=== PATIENT | female | born 1995 | race Caucasian/White ===

== ENCOUNTER 2017-08-11 19:49 | Emergency (ER) | payer SELFPAY ==
--- NOTE | 2017-08-11 21:04 | EDM.PDOC ---
ED HPI GENERAL MEDICAL PROBLEM - General Chief Complaint: ENT Problem Stated Complaint: PT HAS SWOLLEN MOUTH Time Seen by Provider: 08/11/17 20:10 Source of Information: Reports: Patient History Limitations: Reports: No Limitations - History of Present Illness INITIAL COMMENTS - FREE TEXT/NARRATIVE: HISTORY AND PHYSICAL: History of present illness: [22-year-old female complaining of mild sore throat and painful lesions on the sides of her tongue as well as under her tongue. Patient feels like she's been thirsty lately and that her "mouth has been sore. "She feels she's been drinking enough fluids. Denies fevers chills sweats or shaking chills. She feels sicker mouth and lips are drying out] Review of systems: As per history of present illness and below otherwise all systems reviewed and negative. Past medical history: As per history of present illness and as reviewed below otherwise noncontributory. Surgical history: As per history of present illness and as reviewed below otherwise noncontributory. Social history: No reported history of drug or alcohol abuse. Family history: As per history of present illness and as reviewed below otherwise noncontributory. Physical exam: HEENT: Atraumatic, normocephalic, pupils reactive, negative for conjunctival pallor or scleral icterus, mucous membranes moist, throat clear, neck supple, nontender, trachea midline. Lungs: Clear to auscultation, breath sounds equal bilaterally, chest nontender. Heart: S1S2, regular, negative for clicks, rubs, or JVD. Abdomen: Soft, nondistended, nontender. Negative for masses or hepatosplenomegaly. Negative for costovertebral tenderness. Pelvis: Stable nontender. Genitourinary: Deferred. Rectal: Deferred. Extremities: Atraumatic, negative for cords or calf pain. Neurovascular unremarkable. Neuro: Awake, alert, oriented. Cranial nerves unremarkable. Motor and sensory unremarkable throughout. Exam nonfocal. Diagnostics: [Rapid strep] Therapeutics: [] Impression: [Stomatitis Pharyngitis] Plan: [Signs and symptoms consistent with stomatitis with some small areas of ulceration distribution. Patient's oropharynx appears normal however patient with swallowing discomfort so rapid strep pending to rule out early strep infection. Her vital signs are unremarkable and she is well-appearing otherwise. Suspect likely viral stomatitis. Patient aware to use over-the- counter symptomatic treatment as well as Tylenol as needed and follow-up with her primary care doctor. No further workup or treatment will be indicated patient agrees with outpatient follow-up and strict return precautions will be given Definitive disposition and diagnosis as appropriate pending reevaluation and review of above. Oral/Mouth Pain Score (Numeric/FACES): 4 - Related Data Allergies Allergy/AdvReac Type Severity Reaction Status Date / Time Penicillins Allergy Rash Verified 05/27/16 23:34 Home Meds: Home Meds . [No Known Home Meds] 11/04/14 [History] Past Medical History - Past Health History Medical/Surgical History: Denies Medical/Surgical History HEENT History: Reports: None Cardiovascular History: Reports: None Respiratory History: Reports: None Gastrointestinal History: Reports: None Genitourinary History: Reports: None JOB HAND History: Reports: Musculoskeletal History: Reports: None Neurological History: Reports: None Psychiatric History: Reports: None Endocrine/Metabolic History: Reports: None Hematologic History: Reports: Other (See Below) Other Hematologic History: Rhenaud's disease Immunologic History: Reports: Other (See Below) Other Immunologic History: Lupus Oncologic (Cancer) History: Reports: None Dermatologic History: Reports: None - Infectious Disease History Infectious Disease History: Reports: None - Past Surgical History HEENT Surgical History: Reports: Adenoidectomy, Myringotomy w Tube(s), Tonsillectomy Social & Family History - Family History Family Medical History: Unobtainable - Tobacco Use Smoking Status *Q: Never Smoker Second Hand Smoke Exposure: Yes - Alcohol Use Days Per Week of Alcohol Use: 0 - Recreational Drug Use Recreational Drug Use: No ED ROS ENT - Review of Systems Review Of Systems: See Below (History of present illness) ED EXAM, ENT - Physical Exam Exam: See Below (History of present illness) Course - Vital Signs Last Recorded V/S: Last Vital Signs Temp 36.3 C 08/11/17 20:01 Pulse 64 08/11/17 20:01 Resp 18 08/11/17 20:01 BP 104/71 08/11/17 20:01 Pulse Ox 99 08/11/17 20:01 - Orders/Labs/Meds Orders: Active Orders 24 hr Category Date Time Status CULTURE STREP A CONFIRMATION [] Stat Lab 08/11/17 20:53 Results STREP SCRN A RAPID W CULT CONF [] Stat Lab 08/11/17 20:53 Results Labs: Laboratory Tests 08/11/17 Range/Units 20:50 Sodium 140 (136-146) mmol/L Potassium 4.1 (3.5-5.1) mmol/L Chloride 110 (98-110) mmol/L Carbon Dioxide 22 (21-31) mmol/L BUN 20 (6.0-23.0) mg/dL Creatinine 1.0 (0.6-1.5) mg/dL Est Cr Clr Drug Dosing 90.53 mL/min Estimated GFR (MDRD) > 60.0 ml/min Glucose 81 (60-110) mg/dL Calcium 9.3 (8.8-10.8) mg/dL Departure - Departure Time of Disposition: 21:42 Disposition: Home, Self-Care 01 Condition: Good Clinical Impression: Viral stomatitis, Pharyngitis - Discharge Information Referrals: PCP,None [Primary Care Provider] - Forms: ED Department Discharge Additional Instructions: It appears that you have some oral ulcers and ulcers under your tongue. These are a result of a viral infection. Use [id number] topical treatment for oral ulcers for relief of discomfort as needed. You can also take Tylenol as needed for soreness. Your rapid strep test was negative which suggest that your mild sore throat that you've been describing is also a result of your viral infection. Rest and drink plenty of fluids and follow-up with your Dr. in one to 2 days. Return immediately for new severe or worsening symptoms. - My Orders Last 24 Hours: My Active Orders 08/11/17 20:53 CULTURE STREP A CONFIRMATION [RM] Stat STREP SCRN A RAPID W CULT CONF [RM] Stat - Assessment/Plan Last 24 Hours: My Active Orders 08/11/17 20:53 CULTURE STREP A CONFIRMATION [RM] Stat STREP SCRN A RAPID W CULT CONF [RM] Stat
[2017-08-11 21:23] LABS: CHLORIDE,CL 110 mmol/L (98-110); SODIUM,NA 140 mmol/L (136-146)
[2017-08-11 21:57] VITALS: BP 108/61
== END 2017-08-11 21:55 | disposition home or self-care (01) ==
LOC: MW.ED 19:49
DX: J02.9 Acute pharyngitis, unspecified (principal); K12.1 Other forms of stomatitis; Z88.0 Allergy status to penicillin
CPT/HCPCS: 36415; 80048; 87081; 87880; 99282; 99283

== ENCOUNTER 2017-08-19 21:57 | Emergency (ER) | payer SELFPAY ==
--- NOTE | 2017-08-19 22:42 | EDM.PDOC ---
ED HPI GENERAL MEDICAL PROBLEM - General Chief Complaint: Respiratory Problem Stated Complaint: COUGH/CONGESTION/WEAK/LIGHTHEADED Time Seen by Provider: 08/19/17 22:34 - History of Present Illness INITIAL COMMENTS - FREE TEXT/NARRATIVE: HISTORY AND PHYSICAL: History of present illness: Patient's 22-year-old white female presents with concern of generalized myalgia cough intermittent dizziness denies abdominal pain fever chills nausea vomiting or other complaints patient states she has history of lupus and fibromyalgia Review of systems: As per history of present illness and below otherwise all systems reviewed and negative. Past medical history: As per history of present illness and as reviewed below otherwise noncontributory. Surgical history: As per history of present illness and as reviewed below otherwise noncontributory. Social history: No reported history of drug or alcohol abuse. Family history: As per history of present illness and as reviewed below otherwise noncontributory. Physical exam: HEENT: Atraumatic, normocephalic, pupils reactive, negative for conjunctival pallor or scleral icterus, mucous membranes moist, throat clear, neck supple, nontender, trachea midline. Lungs: Clear to auscultation, breath sounds equal bilaterally, chest nontender. Heart: S1S2, regular, negative for clicks, rubs, or JVD. Abdomen: Soft, nondistended, nontender. Negative for masses or hepatosplenomegaly. Negative for costovertebral tenderness. Pelvis: Stable nontender. Genitourinary: Deferred. Rectal: Deferred. Extremities: Atraumatic, negative for cords or calf pain. Neurovascular unremarkable. Neuro: Awake, alert, oriented. Cranial nerves II through XII unremarkable. Cerebellum unremarkable. Motor and sensory unremarkable throughout. Exam nonfocal. Diagnostics: CBC CMP UA hCG chest x-ray Therapeutics: None Impression: #1 viral syndrome Definitive disposition and diagnosis as appropriate pending reevaluation and review of above. Generalized Pain Score (Numeric/FACES): 5 - Related Data Allergies Allergy/AdvReac Type Severity Reaction Status Date / Time Penicillins Allergy Rash Verified 05/27/16 23:34 Home Meds: Home Meds . 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: Musculoskeletal History: Reports: None Neurological History: Reports: None Psychiatric History: Reports: None Endocrine/Metabolic History: Reports: None Hematologic History: Reports: Other (See Below) Other Hematologic History: Rhenaud's disease Immunologic History: Reports: Other (See Below) Other Immunologic History: Lupus Oncologic (Cancer) History: Reports: None Dermatologic History: Reports: None - Infectious Disease History Infectious Disease History: Reports: None - Past Surgical History HEENT Surgical History: Reports: Adenoidectomy, Myringotomy w Tube(s), Tonsillectomy Social & Family History - Family History Family Medical History: Unobtainable - Tobacco Use Smoking Status *Q: Never Smoker Second Hand Smoke Exposure: Yes - Alcohol Use Days Per Week of Alcohol Use: 0 - Recreational Drug Use Recreational Drug Use: No ED ROS GENERAL - Review of Systems Review Of Systems: ROS reveals no pertinent complaints other than HPI. ED EXAM, GENERAL - Physical Exam Exam: See Below (See dictation) Course - Vital Signs Last Recorded V/S: Last Vital Signs Temp 36.9 C 08/19/17 22:00 Pulse 75 08/19/17 22:00 Resp 16 08/19/17 22:00 BP 115/78 08/19/17 22:00 Pulse Ox 98 08/19/17 22:00 - Orders/Labs/Meds Orders: Active Orders 24 hr Category Date Time Status Chest 2V [CR] Stat Exams 08/19/17 22:41 Ordered CBC WITH AUTO DIFF [HEME] Stat Lab 08/19/17 22:40 Ordered COMPREHENSIVE METABOLIC PN,CMP [CHEM] Stat Lab 08/19/17 22:40 Ordered HCG QUALITATIVE,SERUM [CHEM] Stat Lab 08/19/17 22:40 Ordered UA W/MICROSCOPIC [URIN] Stat Lab 08/19/17 22:40 Uncollected Departure - Departure Time of Disposition: 22:42 Disposition: Home, Self-Care 01 Condition: Good Clinical Impression: Viral syndrome - Discharge Information Referrals: Marilee Corral, [employer] [Primary Care Provider] - Additional Instructions: The following information is given to patients seen in the emergency department who are being discharged to home. This information is to outline your options for follow-up care. We provide all patients seen in our emergency department with a follow-up referral. The need for follow-up, as well as the timing and circumstances, are variable depending upon the specifics of your emergency department visit. If you don't have a primary care physician on staff, we will provide you with a referral. We always advise you to contact your personal physician following an emergency department visit to inform them of the circumstance of the visit and for follow-up with them and/or the need for any referrals to a consulting specialist. The emergency department will also refer you to a specialist when appropriate. This referral assures that you have the opportunity for followup care with a specialist. All of these measure are taken in an effort to provide you with optimal care, which includes your followup. Under all circumstances we always encourage you to contact your private physician who remains a resource for coordinating your care. When calling for followup care, please make the office aware that this follow-up is from your recent emergency room visit. If for any reason you are refused follow-up, please contact the [facility] emergency department at and asked to speak to the emergency department charge nurse. Push fluids follow up primary medical doctor 1 today's return as needed as discussed - My Orders Last 24 Hours: My Active Orders 08/19/17 22:40 CBC WITH AUTO DIFF [HEME] Stat COMPREHENSIVE METABOLIC PN,CMP [CHEM] Stat HCG QUALITATIVE,SERUM [CHEM] Stat UA W/MICROSCOPIC [URIN] Stat 08/19/17 22:41 Chest 2V [CR] Stat - Assessment/Plan Last 24 Hours: My Active Orders 08/19/17 22:40 CBC WITH AUTO DIFF [HEME] Stat COMPREHENSIVE METABOLIC PN,CMP [CHEM] Stat HCG QUALITATIVE,SERUM [CHEM] Stat UA W/MICROSCOPIC [URIN] Stat 08/19/17 22:41 Chest 2V [CR] Stat
[2017-08-19 23:24] LABS: CHLORIDE,CL 108 mmol/L (98-110); SODIUM,NA 140 mmol/L (136-146)
[2017-08-20 00:11] VITALS: BP 106/73
--- NOTE | 2017-08-20 10:46 | CR ---
EXAM DATE: 08/19/17 PATIENT'S AGE: 22 Patient: WALTER ARIAS Facility: [place], [place] Site . Site : 1995 Study: XRay Chest [id number] 11:36:29 PM Ordering Physician: Carlos Manuel Toussaint Final Report: INDICATION: Cough, congestion, lightheaded TECHNIQUE: Chest radiograph 2 views COMPARISON: 12/03/15 FINDINGS: Cardiovascular and mediastinum: The cardiac silhouette is normal in appearance and size. Mediastinum is within normal limits. Lungs and pleural spaces: Both lungs are unremarkable in appearance. No sign of pleural effusion. No pneumothorax is seen. Bones and soft tissues: No significant findings. IMPRESSION: 1. No acute cardiopulmonary disease seen. Dictated by: Jackson Medrano MD @ 08/19/2017 23:40:46 (Electronic Signature) Report Signed by Proxy. [facility]ENTERWilliam
== END 2017-08-20 00:10 | disposition home or self-care (01) ==
LOC: MW.ED 21:57
DX: B34.9 Viral infection, unspecified (principal); Z88.0 Allergy status to penicillin; Z98.890 Other specified postprocedural states
CPT/HCPCS: 36415; 71020; 71020-26; 80053; 81001; 84703; 85025; 99282; 99285

== ENCOUNTER 2017-12-09 23:06 | Emergency (ER) | payer SELFPAY ==
--- NOTE | 2017-12-09 23:35 | EDM.PDOC ---
ED HPI GENERAL MEDICAL PROBLEM - General Chief Complaint: General Stated Complaint: UNK Time Seen by Provider: 12/09/17 23:34 Source of Information: Reports: Patient - History of Present Illness INITIAL COMMENTS - FREE TEXT/NARRATIVE: HISTORY AND PHYSICAL: History of present illness: [ Patient presents with several complaints over the last year she is been having some problems with intermittent abdominal pain no worse with fatty food she is actually weaned herself slowly off fatty foods to a fairly bland diet she still notices nausea and bloating even after bland foods and water. After dinner tonight she had some abdominal pain and bloating that has now subsided maximally was 6 out of 10 is 0 out of 10 at current. She also described a numbness sensation don't find any sensory deficit no motor was deficit patient is ambulatory no fever nausea vomiting diarrhea constipation chest pain shortness breath headache dizziness palpitation no bowel or urine symptoms at current ] Review of systems: As per history of present illness and below otherwise all systems reviewed and negative. Past medical history: As per history of present illness and as reviewed below otherwise noncontributory. Surgical history: As per history of present illness and as reviewed below otherwise noncontributory. Social history: No reported history of drug or alcohol abuse. Family history: As per history of present illness and as reviewed below otherwise noncontributory. Physical exam: HEENT: Atraumatic, normocephalic, pupils reactive, negative for conjunctival pallor or scleral icterus, mucous membranes moist, throat clear, neck supple, nontender, trachea midline. Lungs: Clear to auscultation, breath sounds equal bilaterally, chest nontender. Heart: S1S2, regular, negative for clicks, rubs, or JVD. Abdomen: Soft, nondistended, tender in right lower quadrant deep palpation no guarding or rebound. Negative for masses or hepatosplenomegaly. Negative for costovertebral tenderness. Pelvis: Stable nontender. Genitourinary: Deferred. Rectal: Deferred. Extremities: Atraumatic, negative for cords or calf pain. Neurovascular unremarkable. Neuro: Awake, alert, oriented. Cranial nerves II through XII unremarkable. Cerebellum unremarkable. Motor and sensory unremarkable throughout. Exam nonfocal. Diagnostics: []CBC CMP UA hCG cardiac enzymes EKG Chest [address] no [address] CT abdomen pelvis with contrast Therapeutics: [1 L normal saline bolus ] ER referral for general surgeon to evaluate and treat for cholelithiasis and intermittent biliary colic Impression: Cholelithiasis Biliary colic likely Right ovarian cyst No metabolic explanation for the numbness that she experienced however this is resolved at this time patient is otherwise generally healthy Definitive disposition and diagnosis as appropriate pending reevaluation and review of above. - Related Data Allergies Allergy/AdvReac Type Severity Reaction Status Date / Time Penicillins Allergy Rash Verified 12/09/17 23:19 Home Meds: Home Meds . 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: Musculoskeletal History: Reports: None, Other (See Below) Other Musculoskeletal History: fibromyalgia Neurological History: Reports: None Psychiatric History: Reports: None Endocrine/Metabolic History: Reports: None Hematologic History: Reports: Other (See Below) Other Hematologic History: Rhenaud's disease Immunologic History: Reports: Other (See Below) Other Immunologic History: Lupus Oncologic (Cancer) History: Reports: None Dermatologic History: Reports: None - Infectious Disease History Infectious Disease History: Reports: None - Past Surgical History HEENT Surgical History: Reports: Adenoidectomy, Myringotomy w Tube(s), Tonsillectomy Social & Family History - Family History Family Medical History: Unobtainable - Tobacco Use Smoking Status *Q: Never Smoker Second Hand Smoke Exposure: No - Caffeine Use Caffeine Use: Reports: Soda - Alcohol Use Days Per Week of Alcohol Use: 0 - Recreational Drug Use Recreational Drug Use: No ED ROS GENERAL - Review of Systems Review Of Systems: ROS reveals no pertinent complaints other than HPI. ED EXAM, GENERAL - Physical Exam Exam: See Below Course - Vital Signs Last Recorded V/S: Last Vital Signs Temp 98.5 F 12/09/17 23:06 Pulse 98 12/09/17 23:06 Resp 16 12/09/17 23:06 BP 125/80 12/09/17 23:06 Pulse Ox 93 L 12/09/17 23:06 - Orders/Labs/Meds Orders: Active Orders 24 hr Category Date Time Status EKG Documentation Completion [RC] STAT Care 02/05/18 23:32 Active Abdomen Pelvis w Cont [CT] Stat Exams 12/10/17 00:00 Taken Chest 1V Frontal [CR] Stat Exams 12/09/17 23:32 Taken Head wo Cont [CT] Stat Exams 12/09/17 23:32 Taken Labs: Laboratory Tests 12/09/17 12/09/17 12/09/17 Range/Units 23:42 23:42 23:42 WBC (4.0-11.0) K/uL RBC (4.30-5.90) M/uL Hgb (12.0-16.0) g/dL Hct (36.0-46.0) % MCV (80.0-98.0) fL MCH (27.0-32.0) pg MCHC (31.0-37.0) g/dL RDW Std Deviation (28.0-62.0) fl RDW Coeff of Codey (11.0-15.0) % Plt Count (150-400) K/uL MPV (7.40-12.00) fL Neut % (Auto) (48.0-80.0) % Lymph % (Auto) (16.0-40.0) % Upson % (Auto) (0.0-15.0) % Eos % (Auto) (0.0-7.0) % Baso % (Auto) (0.0-1.5) % Neut # (Auto) (1.4-5.7) K/uL Lymph # (Auto) (0.6-2.4) K/uL Upson # (Auto) (0.0-0.8) K/uL Eos # (Auto) (0.0-0.7) K/uL Baso # (Auto) (0.0-0.1) K/uL Nucleated RBC % /100WBC Nucleated RBCs # K/uL INR Sodium (136-146) mmol/L Potassium (3.5-5.1) mmol/L Chloride (98-110) mmol/L Carbon Dioxide (21-31) mmol/L BUN (6.0-23.0) mg/dL Creatinine (0.6-1.5) mg/dL Est Cr Clr Drug Dosing mL/min Estimated GFR (MDRD) ml/min Glucose (60-110) mg/dL Calcium (8.8-10.8) mg/dL Total Bilirubin (0.1-1.5) mg/dL AST (5-40) IU/L ALT (8-54) IU/L Alkaline Phosphatase (40-150) Creatine Kinase (9-236) IU/L CK-MB (CK-2) (0-6.6) ng/ml Troponin I (0.0-0.29) NG/ML Total Protein (6.0-8.0) g/dL Albumin (3.5-5.0) g/dL Globulin (2.0-3.5) g/dL Albumin/Globulin Ratio (1.3-2.8) Urine Color YELLOW Urine Appearance CLEAR Urine pH 7.5 (5.0-8.0) Ur Specific [place] 1.010 (1.001-1.035) Urine Protein NEGATIVE (NEGATIVE) mg/dL Urine Glucose (UA) NEGATIVE (NEGATIVE) mg/dL Urine Ketones NEGATIVE (NEGATIVE) mg/dL Urine Occult Blood NEGATIVE (NEGATIVE) Urine Nitrite NEGATIVE (NEGATIVE) Urine Bilirubin NEGATIVE (NEGATIVE) Urine Urobilinogen 0.2 (<2.0) EU/dL Ur Leukocyte Esterase NEGATIVE (NEGATIVE) Urine RBC 0-2 (0-2/HPF) Urine WBC 0-1 (0-5/HPF) Ur Epithelial Cells FEW (NONE-FEW) Urine Bacteria FEW (NEGATIVE) Urine HCG, Qual NEGATIVE (NEGATIVE) Urine Opiates Screen NEGATIVE (NEGATIVE) Ur Oxycodone Screen NEGATIVE (NEGATIVE) Urine Methadone Screen NEGATIVE (NEGATIVE) Ur Barbiturates Screen NEGATIVE (NEGATIVE) Ur Phencyclidine Scrn NEGATIVE (NEGATIVE) Ur Amphetamine Screen NEGATIVE (NEGATIVE) U Methamphetamines Scrn NEGATIVE (NEGATIVE) U Benzodiazepines Scrn NEGATIVE (NEGATIVE) U Cocaine Metab Screen NEGATIVE (NEGATIVE) U Marijuana (THC) Screen NEGATIVE (NEGATIVE) Ethyl Alcohol mg/dL 12/09/17 12/09/17 12/09/17 Range/Units 23:53 23:53 23:53 WBC 6.81 (4.0-11.0) K/uL RBC 4.41 (4.30-5.90) M/uL Hgb 13.2 (12.0-16.0) g/dL Hct 38.5 (36.0-46.0) % MCV 87.3 (80.0-98.0) fL MCH 29.9 (27.0-32.0) pg MCHC 34.3 (31.0-37.0) g/dL RDW Std Deviation 42.6 (28.0-62.0) fl RDW Coeff of Codey 13 (11.0-15.0) % Plt Count 207 (150-400) K/uL MPV 10.70 (7.40-12.00) fL Neut % (Auto) 61.3 (48.0-80.0) % Lymph % (Auto) 26.1 (16.0-40.0) % Upson % (Auto) 7.6 (0.0-15.0) % Eos % (Auto) 4.6 (0.0-7.0) % Baso % (Auto) 0.4 (0.0-1.5) % Neut # (Auto) 4.2 (1.4-5.7) K/uL Lymph # (Auto) 1.8 (0.6-2.4) K/uL Upson # (Auto) 0.5 (0.0-0.8) K/uL Eos # (Auto) 0.3 (0.0-0.7) K/uL Baso # (Auto) 0.0 (0.0-0.1) K/uL Nucleated RBC % 0.0 /100WBC Nucleated RBCs # 0 K/uL INR 1.02 Sodium 142 (136-146) mmol/L Potassium 3.6 (3.5-5.1) mmol/L Chloride 110 (98-110) mmol/L Carbon Dioxide 23 (21-31) mmol/L BUN 15 (6.0-23.0) mg/dL Creatinine 0.9 (0.6-1.5) mg/dL Est Cr Clr Drug Dosing 97.82 mL/min Estimated GFR (MDRD) > 60.0 ml/min Glucose 95 (60-110) mg/dL Calcium 9.9 (8.8-10.8) mg/dL Total Bilirubin 0.4 (0.1-1.5) mg/dL AST 126 H (5-40) IU/L ALT 162 H (8-54) IU/L Alkaline Phosphatase 105 (40-150) Creatine Kinase 91 (9-236) IU/L CK-MB (CK-2) 1.1 (0-6.6) ng/ml Troponin I < 0.10 (0.0-0.29) NG/ML Total Protein 6.9 (6.0-8.0) g/dL Albumin 4.5 (3.5-5.0) g/dL Globulin 2.4 (2.0-3.5) g/dL Albumin/Globulin Ratio 1.9 (1.3-2.8) Urine Color Urine Appearance Urine pH (5.0-8.0) Ur Specific [place] (1.001-1.035) Urine Protein (NEGATIVE) mg/dL Urine Glucose (UA) (NEGATIVE) mg/dL Urine Ketones (NEGATIVE) mg/dL Urine Occult Blood (NEGATIVE) Urine Nitrite (NEGATIVE) Urine Bilirubin (NEGATIVE) Urine Urobilinogen (<2.0) EU/dL Ur Leukocyte Esterase (NEGATIVE) Urine RBC (0-2/HPF) Urine WBC (0-5/HPF) Ur Epithelial Cells (NONE-FEW) Urine Bacteria (NEGATIVE) Urine HCG, Qual (NEGATIVE) Urine Opiates Screen (NEGATIVE) Ur Oxycodone Screen (NEGATIVE) Urine Methadone Screen (NEGATIVE) Ur Barbiturates Screen (NEGATIVE) Ur Phencyclidine Scrn (NEGATIVE) Ur Amphetamine Screen (NEGATIVE) U Methamphetamines Scrn (NEGATIVE) U Benzodiazepines Scrn (NEGATIVE) U Cocaine Metab Screen (NEGATIVE) U Marijuana (THC) Screen (NEGATIVE) Ethyl Alcohol < 10.0 mg/dL Meds: Medications Discontinued Medications Generic Name Dose Route Start Last Admin Trade Name Freq PRN Reason Stop Dose Admin Lorazepam 0.5 mg 12/09/17 23:38 12/09/17 23:59 Ativan IVPUSH 12/09/17 23:39 0.5 mg ONETIME ONE Administration Departure - Departure Time of Disposition: 02:03 Disposition: Home, Self-Care 01 Condition: Good Clinical Impression: Cholelithiasis, Biliary colic, Ovarian cyst - Discharge Information Referrals: PCP,None [Primary Care Provider] - Forms: ED Department Discharge Additional Instructions: Prescription for Cipro 500 mg by mouth twice a day #20 no refill Toradol 10 mg by mouth 3 times a day when necessary #15 no refill Zofran 8 mg every 8 hours when necessary #30 no refill ER referral for general surgeon to evaluate and treat cholelithiasis and intermittent biliary colic [facility] - General Surgery Professional [address], [address] [place] [address] The following information is given to patients seen in the emergency department who are being discharged to home. This information is to outline your options for follow-up care. We provide all patients seen in our emergency department with a follow-up referral. The need for follow-up, as well as the timing and circumstances, are variable depending upon the specifics of your emergency department visit. If you don't have a primary care physician on staff, we will provide you with a referral. We always advise you to contact your personal physician following an emergency department visit to inform them of the circumstance of the visit and for follow-up with them and/or the need for any referrals to a consulting specialist. The emergency department will also refer you to a specialist when appropriate. This referral assures that you have the opportunity for follow-up care with a specialist. All of these measure are taken in an effort to provide you with optimal care, which includes your follow-up. Under all circumstances we always encourage you to contact your private physician who remains a resource for coordinating your care. When calling for follow-up care, please make the office aware that this follow-up is from your recent emergency room visit. If for any reason you are refused follow-up, please contact the [facility] emergency department at and asked to speak to the emergency department charge nurse. - My Orders Last 24 Hours: My Active Orders 12/09/17 23:32 EKG Documentation Completion [RC] STAT Chest 1V Frontal [CR] Stat Head wo Cont [CT] Stat 12/10/17 00:00 Abdomen Pelvis w Cont [CT] Stat - Assessment/Plan Last 24 Hours: My Active Orders 12/09/17 23:32 EKG Documentation Completion [RC] STAT Chest 1V Frontal [CR] Stat Head wo Cont [CT] Stat 12/10/17 00:00 Abdomen Pelvis w Cont [CT] Stat
[2017-12-09] MEDS ORDERED: LORazepam 2 MG/ML MDV IVPUSH ONE (23:38)
[2017-12-10 00:38] LABS: CHLORIDE,CL 110 mmol/L (98-110); SODIUM,NA 142 mmol/L (136-146)
[2017-12-10 03:21] VITALS: BP 117/76
--- NOTE | 2017-12-10 13:01 | CT ---
EXAM DATE: 12/09/17 PATIENT'S AGE: 22 Patient: WALTER ARIAS Facility: [place], [place] Site . Site : 1995 Study: CT Head [id number] 1:08:19 AM Ordering Physician: Doctor Ravi Final Report: INDICATION: dizziness and fatigue today TECHNIQUE: CT Head without contrast. COMPARISON: None. FINDINGS: There is no sign of intracranial hemorrhage or mass effect. The kearney-white differentiation is preserved. No abnormal intra-axial or extra-axial fluid collection. No acute disease of the visualized paranasal sinuses and mastoid air cells. No fracture evident. No scalp hematoma/laceration. IMPRESSION: No acute intracranial process. Dictated by: Filippo Bales MD @ 12/10/2017 01:29:30 (Electronic Signature) Report Signed by Proxy. [facility]
--- NOTE | 2017-12-10 13:02 | CT ---
EXAM DATE: 12/09/17 PATIENT'S AGE: 22 Patient: WALTER ARIAS Facility: [place], [place] Site . Site : 1995 Study: CT Abdomen/Pelvis With [id number] 1:08:47 AM Ordering Physician: Maikel Luque Final Report: INDICATION: general abd pain TECHNIQUE: CT abdomen and pelvis acquired with IV contrast. COMPARISON: None FINDINGS: Lower chest: Unremarkable. Liver: Unremarkable. Spleen: Unremarkable. Pancreas: Unremarkable. Gallbladder and bile ducts: Cholelithiasis. Mild prominence of the intrahepatic biliary system. . Kidneys: Unremarkable. Adrenal glands: Unremarkable. GI tract: Unremarkable. Appendix is not visualized. Vascular structures: Negative. No sign of aneurysm. Lymph nodes: Unremarkable. Miscellaneous: Unremarkable. No free air. Small amount of free fluid. Pelvic Organs: Nonspecific fluid within the endometrium. Incompletely evaluated 3.1 x 3 cm low-attenuation structure within the right adnexa. Bones: Unremarkable for age. IMPRESSION: 1. Cholelithiasis. Nonspecific mild prominence of the intrahepatic biliary system. 2. Nonspecific fluid within the endometrium. Please correlate with patient`s menstrual cycle. Incompletely evaluated 3.1 cm probable right ovarian cyst. If clinically warranted this could be Further evaluated with a pelvic ultrasound. Dictated by Filippo Bales MD @ 12/10/2017 1:38:40 AM Dictated by: Filippo Bales MD @ 12/10/2017 01:38:53 (Electronic Signature) Report Signed by Proxy. [facility]
--- NOTE | 2017-12-10 13:03 | CR ---
EXAM DATE: 12/09/17 PATIENT'S AGE: 22 Patient: WALTER ARIAS Facility: [place], [place] Site . Site : 1995 Study: XRay Chest [id number] 1:13:49 AM Ordering Physician: Maikel Luque Final Report: INDICATION: dizziness and fatigue today TECHNIQUE: Chest 1 view COMPARISON: August 19, 2017 FINDINGS: Cardiovascular and mediastinum: Heart size and vasculature are normal in caliber and appearance. Mediastinum is within normal limits. Lungs and pleural space: No focal consolidation. No sign of pleural effusion. No pneumothorax. Bones and soft tissues: No significant findings. IMPRESSION: No acute cardiopulmonary disease. Dictated by Filippo Bales MD @ 12/10/2017 1:40:11 AM Dictated by: Filippo Bales MD @ 12/10/2017 01:40:32 (Electronic Signature) Report Signed by Proxy. [facility]
== END 2017-12-10 02:25 | disposition home or self-care (01) ==
LOC: MW.ED 23:06
DX: K80.70 Calculus of gallbladder and bile duct without cholecystitis without obstruction (principal); N83.201 Unspecified ovarian cyst, right side; Z88.0 Allergy status to penicillin
CPT/HCPCS: 36415; 70450; 71045; 74177; 80053; 80305; 81001; 81025; 82550; 82553; 84484; 85025; 85610; 93005; 96374; 99284; G0480; J2060; 99283

== ENCOUNTER 2018-01-06 07:22 | Day surgery (SDC) | payer MEDICAID ==
[~2018-01-06 07:22] MED LIST: Lactated Ringers 1,000 ML IV SCH; cefOXitin 2 GM in Premix Bag 1 BAG IV ONE
[2018-01-06] MEDS ORDERED: Midazolam 1 MG/ML 2 ML SDV ONE (07:23)
[2018-01-06] MEDS ORDERED: fentaNYL 100 MCG/2 ML SDV ONE (07:23)
[2018-01-06] MEDS ORDERED: HYDROmorphone 2 MG/ML SDV ONE (07:23)
[2018-01-06] MEDS ORDERED: Propofol 200 MG/20 ML SDV ONE (07:23)
[2018-01-06] MEDS ORDERED: Bupivacaine 0.5% 10 ML SDV ONE (07:28)
--- NOTE | 2018-01-06 08:32 | PCM.PREANE ---
Preanesthetic Assessment - Anesthesia/Transfusion/Family Hx Anesthesia History: Prior Anesthesia Without Reaction Family History of Anesthesia Reaction: No (mother within 24 hours after CTR last month) Transfusion History: No Prior Transfusion(s) Intubation History: Unknown - Review of Systems General: No Symptoms Pulmonary: No Symptoms Cardiovascular: No Symptoms Gastrointestinal: Abdominal Pain Neurological: No Symptoms Other: Reports: None - Physical Assessment O2 Sat by Pulse Oximetry: 99 Respiratory Rate: 16 Vital Signs: Last Vital Signs Temp 36.6 C 01/06/18 08:01 Pulse 76 01/06/18 08:01 Resp 16 01/06/18 08:01 BP 104/74 01/06/18 08:01 Pulse Ox 99 01/06/18 08:01 Height: 1.73 m Weight: 61.689 kg ASA Class: 2 Mental Status: Alert & Oriented x3 Dentition: Reports: Normal Dentition Thyro-Mental Finger Breadths: 3 Mouth Opening Finger Breadths: 3 ROM/Head Extension: Full Lungs: Clear to Auscultation, Normal Respiratory Effort Cardiovascular: Regular Rate, Regular Rhythm - Lab Values: Laboratory Last Values Urine HCG, Qual NEGATIVE (NEGATIVE) 01/06/18 07:44 - Allergies Allergies/Adverse Reactions: Allergies Allergy/AdvReac Type Severity Reaction Status Date / Time Penicillins Allergy Anaphylactic Verified 01/01/18 11:29 Shock - Blood Blood Available: No - Anesthesia Plan Pre-Op Medication Ordered: None - Acknowledgements Anesthesia Type Planned: General Anesthesia Pt an Appropriate Candidate for the Planned Anesthesia: Yes Alternatives and Risks of Anesthesia Discussed w Pt/Guardian: Yes Pt/Guardian Understands and Agrees with Anesthesia Plan: Yes PreAnesthesia Questionnaire - Past Health History Medical/Surgical History: Denies Medical/Surgical History HEENT History: Reports: None Cardiovascular History: Reports: Other (See Below) Other Cardiovascular History: hx of Raynauds disease in hands and feet Respiratory History: Reports: None Gastrointestinal History: Reports: Cholelithiasis Genitourinary History: Reports: 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: Musculoskeletal History: Reports: Fibromyalgia Other Musculoskeletal History: fibromyalgia Neurological History: Reports: Other (See Below) Other Neuro History: hx of motion sickness Psychiatric History: Reports: None Endocrine/Metabolic History: Reports: None Hematologic History: Reports: Other (See Below) Other Hematologic History: Rhenaud's disease Immunologic History: Reports: Other (See Below) Other Immunologic History: Lupus Oncologic (Cancer) History: Reports: None Dermatologic History: Reports: None - Infectious Disease History Infectious Disease History: Reports: None - Past Surgical History HEENT Surgical History: Reports: Adenoidectomy, Myringotomy w Tube(s) (x4), Tonsillectomy - SUBSTANCE USE Smoking Status *Q: Never Smoker Second Hand Smoke Exposure: No Days Per Week of Alcohol Use: 0 Recreational Drug Use History: No - HOME MEDS Home Medications: Home Meds One Daily For Women 2 tab PO DAILY 01/01/18 [History] - CURRENT (IN HOUSE) MEDS Current Meds: Current Medications Lactated Ringer's (Ringers, Lactated) 1,000 mls @ 125 mls/hr IV ASDIRECTED [facility] Last Admin: 01/06/18 08:20 Dose: 125 mls/hr Discontinued Medications Bupivacaine HCl (Sensorcaine-Mpf 0.5%) Confirm Administered Dose 30 ml .ROUTE .STK-MED ONE Stop: 01/06/18 07:29 Fentanyl (Sublimaze) Confirm Administered Dose 100 mcg .ROUTE .STK-MED ONE Stop: 01/06/18 07:24 Hydromorphone HCl (Dilaudid) Confirm Administered Dose 2 mg .ROUTE .STK-MED ONE Stop: 01/06/18 07:24 Cefoxitin Sodium 2 gm/ Premix 50 mls @ 100 mls/hr IV ONETIME ONE Stop: 01/06/18 06:29 Lidocaine HCl (Xylocaine-Mpf 1%) Confirm Administered Dose 5 ml .ROUTE .STK-MED ONE Stop: 01/06/18 07:26 Midazolam HCl (Versed 1 Mg/Ml) Confirm Administered Dose 2 mg .ROUTE .STK-MED ONE Stop: 01/06/18 07:24 Propofol (Diprivan 20 Ml) Confirm Administered Dose 200 mg .ROUTE .STK-MED ONE Stop: 01/06/18 07:24
[2018-01-06] MEDS ORDERED: Scopolamine 1.5 MG Transdermal Patch ONE (08:35)
[2018-01-06] MEDS ORDERED: Neostigmine Methylsulfate 1 MG/ML 5 ML Syringe ONE (09:31)
[2018-01-06] MEDS ORDERED: Ondansetron 4 MG/2 ML SDV ONE (09:31)
[2018-01-06] MEDS ORDERED: diphenhydrAMINE 50 MG/ML SDV ONE (09:31)
[2018-01-06] MEDS ORDERED: Glycopyrrolate 0.2 MG/ML SDV ONE (09:31)
[2018-01-06] MEDS ORDERED: Rocuronium 10 MG/ML 10 ML Syringe ONE (09:31)
[2018-01-06] MEDS ORDERED: cefOXitin 1 GM Vial ONE (09:31)
[2018-01-06] MEDS ORDERED: ePHEDrine 50 MG/ML SDV ONE (09:32)
[2018-01-06] MEDS ORDERED: Acetaminophen/oxyCODONE 325-5 MG Tab PO PRN (10:40)
[2018-01-06] MEDS ORDERED: Ondansetron 4 MG Tab PO PRN (10:41)
--- NOTE | 2018-01-06 10:47 | PCM.OPNOTE ---
- General Post-Op/Procedure Note Date of Surgery/Procedure: 01/06/18 Operative Procedure(s): Laparoscopic cholecystectomy Pre Op Diagnosis: Symptomatic cholelithiasis Post-Op Diagnosis: Same Anesthesia Technique: General ET Tube (ASA II) Primary Surgeon: Daren Ochoa Community Manager: Mingo Mohamud Fluid Replacement, Intraop: 1,100 Output, Urine Amount: 30 EBL in mLs: 10 Condition: Good Free Text/Narrative:: Dictation [id number] CPT CODE [id number]
[2018-01-06] MEDS: fentaNYL 100 MCG/2 ML SDV IVPUSH PRN ×2 (10:50→10:51)
[2018-01-06] MEDS ORDERED: Morphine 10 MG/ML Syringe IVPUSH PRN (10:56)
[2018-01-06] MEDS ORDERED: Lactated Ringers 1,000 ML IV SCH (11:00)
--- NOTE | 2018-01-06 11:17 | PCM.POSTAN ---
POST ANESTHESIA ASSESSMENT - MENTAL STATUS Mental Status: Alert - RESPIRATORY Respiratory Status: Respiratory Rate WNL, Airway Patent, O2 Saturation Stable - CARDIOVASCULAR CV Status: Pulse Rate WNL, Blood Pressure Stable - GASTROINTESTINAL GI Status: No Symptoms - PAIN Pain Score: 4 - POST OP HYDRATION Hydration Status: Adequate & Stable - OBSERVATIONS Free Text/Narrative:: no anesthesia problems
--- NOTE | 2018-01-06 12:01 | OR ---
SURGEON: Daren Ochoa M.D. DATE OF PROCEDURE: 01/06/2018 OPERATION PERFORMED: Laparoscopic cholecystectomy. CIRCUS AGENT: Dr. Mohamud, PGY-3. ANESTHESIA: General endotracheal ASA CLASSIFICATION: II. PREOPERATIVE DIAGNOSIS: Cholelithiasis. POSTOPERATIVE DIAGNOSIS: Cholelithiasis. ESTIMATED BLOOD LOSS: 10 mL. INTRAOPERATIVE FLUID REPLACEMENT: 1100 mL of crystalloid. INTRAOPERATIVE URINARY OUTPUT: 30 mL. DESCRIPTION OF PROCEDURE: The patient was taken to the operating room and placed on the operating table in the supine position. Time-out was called for appropriate identification of the patient and procedure. Thigh-high TEDs and sequential compression boots were placed. Following satisfactory attainment of general endotracheal anesthesia, a Sharma catheter was placed in the patient's urinary bladder. The abdomen was prepped with DuraPrep solution, sterile drapes were applied. The skin just below the umbilicus was infiltrated with 0.5% Marcaine solution. The skin incision was made and deepened through the subcutaneous tissue obtaining hemostasis with the use of electrocautery. The Veress needle was introduced into the peritoneal cavity. Saline drop test was positive. Carbon dioxide pneumoperitoneum was established with the relief set at 13 cm of water. Once we had a satisfactory pneumoperitoneum, 5 mm camera and port were placed through the infraumbilical incision. The patient was now positioned with the feet down and rolled to the left. Under camera vision, 12 mm subxiphoid, 5 mm midclavicular, and 5 mm anterior axillary ports were placed. Each incision had preemptively been infiltrated with 0.5% Marcaine solution. The gallbladder was then grasped and the dissection began in the cholecystohepatic triangle. The cystic artery was identified first and dissected out of harm's way. This was then hemoclipped and divided with the laparoscopic Metzenbaum scissor. Following that, the cystic duct was able to be identified, mobilized, and critical view obtained. Once we had confirmed the cystic duct and cleared the view, this structure was also hemoclipped proximally and distally before division with the laparoscopic Metzenbaum scissor. Once that was accomplished, the gallbladder was dissected away from its bed using electrocautery. Once the gallbladder was amputated, this was placed in an Endopouch, which remained in situ. The bed of the gallbladder was then inspected and small bleeding sites were electrocoagulated. The gallbladder bed was irrigated with sterile saline solution. All fluid was aspirated. Surgicel was placed into the bed of the gallbladder. The right hemidiaphragm was irrigated with 200 mL of saline containing 20 mL of 0.5% Marcaine solution, that fluid was left in place. The gallbladder containing Endopouch was then removed through the subxiphoid incision removing the port at the same time. Under camera vision, the 5 mm midclavicular and anterior axillary ports were removed, and finally the infraumbilical camera and port were removed. The wounds were inspected for hemostasis, and hemostasis obtained with electrocautery. The wounds were then closed in the following fashion. The infraumbilical and subxiphoid incisions were closed in 2 layers approximating the subcutaneous tissue with 3-0 Vicryl, and the skin with subcuticular 4-0 Monocryl. The anterior axillary incision was closed with the cutaneous 4-0 Monocryl. The midclavicular incision was closed with subcuticular 4-0 Monocryl. All incisions were Steri-Stripped and dressed with sterile Tegaderm pads. Sponge, needle, and instrument counts were all correct. The Sharma catheter was removed prior to emergence from anesthesia. Following emergence from anesthesia and extubation, the patient was taken to recovery room in stable condition. SIVAKUMAR HURTADO /[id number] LEX
--- NOTE | 2018-01-06 13:19 | PCM48HPAN ---
Post Anesthesia Note - EVALUATION WITHIN 48HRS OF ANESTHETIC Vital Signs in Normal Range: Yes Patient Participated in Evaluation: Yes Respiratory Function Stable: Yes Airway Patent: Yes Cardiovascular Function Stable: Yes Hydration Status Stable: Yes Pain Control Satisfactory: Yes Nausea and Vomiting Control Satisfactory: Yes Mental Status Recovered: Yes Resp Rate: 12 - COMMENTS/OBSERVATIONS Free Text/Narrative:: no anesthesia problems
[2018-01-06 14:43] VITALS: BP 128/67
== END 2018-01-06 13:53 | disposition home or self-care (01) ==
LOC: MW.SDS 07:22
PROVIDERS: ATTEND Surgery
DX: K80.10 Calculus of gallbladder with chronic cholecystitis without obstruction (principal); Z88.0 Allergy status to penicillin; Z79.899 Other long term (current) drug therapy; Z90.89 Acquired absence of other organs; Z98.890 Other specified postprocedural states
CPT/HCPCS: 47562; 81025; A9270; J0694; J1170; J1200; J2250; J2405; J3010; J7120; 00790; 88304; J2704

== ENCOUNTER 2018-03-03 19:18 | Emergency (ER) | payer MEDICAID ==
--- NOTE | 2018-03-03 20:23 | EDM.PDOC ---
ED HPI GENERAL MEDICAL PROBLEM - General Chief Complaint: General Stated Complaint: PT VOMITING Time Seen by Provider: 03/03/18 20:18 - History of Present Illness INITIAL COMMENTS - FREE TEXT/NARRATIVE: HISTORY AND PHYSICAL: History of present illness: Patient's 23-year-old female presents concern of sinus congestion and face pain and nonspecific abdominal pain this is been associated with some anorexia she denies fever chills vomiting diarrhea or other complaints. Patient denies vaginal discharge urinary symptoms or other complaints Review of systems: As per history of present illness and below otherwise all systems reviewed and negative. Past medical history: As per history of present illness and as reviewed below otherwise noncontributory. Surgical history: As per history of present illness and as reviewed below otherwise noncontributory. Social history: No reported history of drug or alcohol abuse. Family history: As per history of present illness and as reviewed below otherwise noncontributory. Physical exam: HEENT: Patient has tenderness over her maxillary sinuses right greater than left Atraumatic, normocephalic, pupils reactive, negative for conjunctival pallor or scleral icterus, mucous membranes moist, throat clear, neck supple, nontender, trachea midline. Lungs: Clear to auscultation, breath sounds equal bilaterally, chest nontender. Heart: S1S2, regular, negative for clicks, rubs, or JVD. Abdomen: Soft, nondistended, nontender. Negative for masses or hepatosplenomegaly. Negative for costovertebral tenderness. Pelvis: Stable nontender. Genitourinary: Deferred. Rectal: Deferred. Extremities: Atraumatic, negative for cords or calf pain. Neurovascular unremarkable. Neuro: Awake, alert, oriented. Cranial nerves II through XII unremarkable. Cerebellum unremarkable. Motor and sensory unremarkable throughout. Exam nonfocal. Diagnostics: CBC CMP UA hCG Therapeutics: None Impression: #1 nonspecific abdominal pain #2 sinusitis Definitive disposition and diagnosis as appropriate pending reevaluation and review of above. - Related Data Allergies Allergy/AdvReac Type Severity Reaction Status Date / Time Penicillins Allergy Anaphylactic Verified 01/01/18 11:29 Shock Home Meds: Home Meds One Daily For Women 2 tab PO DAILY 01/01/18 [History] Acetaminophen/oxyCODONE [Percocet 325-5 MG] 1 - 2 tab PO Q4H PRN #20 tablet 03/ 05/18 [Rx] Past Medical History - Past Health History Medical/Surgical History: Denies Medical/Surgical History HEENT History: Reports: None Cardiovascular History: Reports: Other (See Below) Other Cardiovascular History: hx of Raynauds disease in hands and feet Respiratory History: Reports: None Gastrointestinal History: Reports: Cholelithiasis Genitourinary History: Reports: None 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: Musculoskeletal History: Reports: Fibromyalgia Other Musculoskeletal History: fibromyalgia Neurological History: Reports: Other (See Below) Other Neuro History: hx of motion sickness Psychiatric History: Reports: None Endocrine/Metabolic History: Reports: None Hematologic History: Reports: Other (See Below) Other Hematologic History: Rhenaud's disease Immunologic History: Reports: Other (See Below) Other Immunologic History: Lupus Oncologic (Cancer) History: Reports: None Dermatologic History: Reports: None - Infectious Disease History Infectious Disease History: Reports: None - Past Surgical History HEENT Surgical History: Reports: Adenoidectomy, Myringotomy w Tube(s) (x4), Tonsillectomy Social & Family History - Family History Family Medical History: Unobtainable - Tobacco Use Smoking Status *Q: Never Smoker Second Hand Smoke Exposure: No - Caffeine Use Caffeine Use: Reports: Soda - Alcohol Use Days Per Week of Alcohol Use: 0 - Recreational Drug Use Recreational Drug Use: No Drug Use in Last 12 Months: No ED ROS GENERAL - Review of Systems Review Of Systems: ROS reveals no pertinent complaints other than HPI. ED EXAM, GENERAL - Physical Exam Exam: See Below (See dictation) Departure - Departure Time of Disposition: 20:22 Disposition: Home, Self-Care 01 Condition: Good Clinical Impression: Abdominal pain, Sinusitis - Discharge Information Referrals: PCP,None [Primary Care Provider] - Additional Instructions: The following information is given to patients seen in the emergency department who are being discharged to home. This information is to outline your options for follow-up care. We provide all patients seen in our emergency department with a follow-up referral. The need for follow-up, as well as the timing and circumstances, are variable depending upon the specifics of your emergency department visit. If you don't have a primary care physician on staff, we will provide you with a referral. We always advise you to contact your personal physician following an emergency department visit to inform them of the circumstance of the visit and for follow-up with them and/or the need for any referrals to a consulting specialist. The emergency department will also refer you to a specialist when appropriate. This referral assures that you have the opportunity for followup care with a specialist. All of these measure are taken in an effort to provide you with optimal care, which includes your followup. Under all circumstances we always encourage you to contact your private physician who remains a resource for coordinating your care. When calling for followup care, please make the office aware that this follow-up is from your recent emergency room visit. If for any reason you are refused follow-up, please contact the [facility] emergency department at and asked to speak to the emergency department charge nurse. Bactrim as prescribed follow-up primary medical doctor as needed as discussed clear liquids 24 hours advance diet as tolerated and return as needed as discussed
[2018-03-03 21:03] LABS: CHLORIDE,CL 106 mmol/L (98-107); SODIUM,NA 141 mmol/L (136-145)
[2018-03-03 21:59] VITALS: BP 102/75
== END 2018-03-03 21:35 | disposition home or self-care (01) ==
LOC: MW.ED 19:18
DX: J32.9 Chronic sinusitis, unspecified (principal); R10.9 Unspecified abdominal pain; Z88.0 Allergy status to penicillin; Z79.899 Other long term (current) drug therapy
CPT/HCPCS: 36415; 80053; 81001; 84703; 85025; 99282; 99283

== ENCOUNTER 2018-07-22 20:33 | Emergency (ER) | payer MEDICAID ==
--- NOTE | 2018-07-22 20:58 | EDM.PDOC ---
ED HPI GENERAL MEDICAL PROBLEM - General Chief Complaint: Abdominal Pain Stated Complaint: 6wk PRAG AND IS HAVING BAD CRAMPS WITH LITTLE BLEE Time Seen by Provider: 07/22/18 20:48 - History of Present Illness INITIAL COMMENTS - FREE TEXT/NARRATIVE: HISTORY AND PHYSICAL: History of present illness: The patient is a 23-year-old female who is a 2 para 1 and was unsure of her last period, it may have been May 14 putting her at an estimated gestational age of 9-1/2 weeks or June 12 with threaded estimated gestational age of 5 weeks 5 days although the period in June was very short, and is here for left lower abdominal pain that started today. The patient has not started care but is scheduled to see our nurse log chipper operator Perla and her prior was a normal vaginal delivery. She has a significant surgical history of a cholecystectomy and she has not had fevers chills or upper abdominal pain no cough or upper respiratory symptoms. She has had some nausea intermittently but no vomiting and had a normal bowel movement this evening. She has been eating and drinking normally but says she does have to urinate all the time. Is not painful to urinate and she has no flank pain. She says the pain is crampy and located in the left side and she has had not had any trauma. Patient has not had hematuria but does say that she has some spotting when she wipes which is very faint and pink and she has not had to use a pad. The patient has no STD history or ectopic risks Review of systems: As per history of present illness and below otherwise all systems reviewed and negative. Past medical history: As per history of present illness and as reviewed below otherwise noncontributory. Surgical history: As per history of present illness and as reviewed below otherwise noncontributory. Social history: No reported history of drug or alcohol abuse. Family history: As per history of present illness and as reviewed below otherwise noncontributory. Physical exam: General: Well-developed well-nourished female is nontoxic and moves easily in the ED. Vital signs are noted by me HEENT: Atraumatic, normocephalic, , negative for conjunctival pallor or scleral icterus, mucous membranes moist, throat clear, neck supple, nontender, trachea midline. Lungs: Clear to auscultation, breath sounds equal bilaterally, chest nontender. Heart: S1S2, regular rate and rhythm no overt murmurs Abdomen: Soft, nondistended, there is some mild tenderness in the left lower quadrant on deep palpation without rebound or guarding and bowel sounds are hypoactive. Negative for masses or hepatosplenomegaly. Negative for costovertebral tenderness. Pelvis: Stable nontender. Genitourinary: Deferred. Rectal: Deferred. Extremities: Atraumatic, negative for cords or calf pain. Neurovascular unremarkable. Neuro: Awake, alert, oriented. Cranial nerves II through XII unremarkable. Cerebellum unremarkable. Motor and sensory unremarkable throughout. Exam nonfocal. Diagnostics: CBC serum quantitative hCG ABO Rh UA urine culture if indicated pelvic ultrasound Therapeutics: This was discussed with Dr. Beach [id number]; as the patient is only having minimal spotting on the toilet paper and has not used a pad she does not feel that RhoGAM is indicated at the time for her negative status. Advised the patient that if she starts to bleed more that she will need to get the program. The patient has a scheduled appointment next month with our nurse log chipper operator Perla and I advised the patient to call and try to move that appointment up as this needs to be followed more closely. I will give her information [facility] that if she is unable to move her appointment with Perla she has another option. I've advised on strict pelvic rest and reasons to return to the ED Impression: Threatened Definitive disposition and diagnosis as appropriate pending reevaluation and review of above. Lower Left Quadrant pain Pain Score (Numeric/FACES): 6 - Related Data Allergies Allergy/AdvReac Type Severity Reaction Status Date / Time Penicillins Allergy Anaphylactic Verified 07/22/18 20:41 Shock Home Meds: Home Meds Vits #93/Iron Fum/FA [ Formula Tablet] 1 tab PO DAILY 07/22/18 [History] Past Medical History - Past Health History Medical/Surgical History: Denies Medical/Surgical History HEENT History: Reports: None Cardiovascular History: Reports: Other (See Below) Other Cardiovascular History: hx of Raynauds disease in hands and feet Respiratory History: Reports: None Gastrointestinal History: Reports: Cholelithiasis Genitourinary History: Reports: None 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: Musculoskeletal History: Reports: Fibromyalgia Other Musculoskeletal History: fibromyalgia Neurological History: Reports: Other (See Below) Other Neuro History: hx of motion sickness Psychiatric History: Reports: None Endocrine/Metabolic History: Reports: None Hematologic History: Reports: Other (See Below) Other Hematologic History: Rhenaud's disease; lupus Immunologic History: Reports: Other (See Below) Other Immunologic History: Lupus Oncologic (Cancer) History: Reports: None Dermatologic History: Reports: None - Infectious Disease History Infectious Disease History: Reports: None - Past Surgical History HEENT Surgical History: Reports: Adenoidectomy, Myringotomy w Tube(s), Tonsillectomy Cardiovascular Surgical History: Reports: None Social & Family History - Family History Family Medical History: Unobtainable - Tobacco Use Smoking Status *Q: Never Smoker Second Hand Smoke Exposure: No - Caffeine Use Caffeine Use: Reports: Soda Caffeine Use Comment: stopped when she found out - Recreational Drug Use Recreational Drug Use: No ED ROS GENERAL - Review of Systems Review Of Systems: ROS reveals no pertinent complaints other than HPI. ED EXAM, GENERAL - Physical Exam Exam: See Below (see dictation) Course - Vital Signs Last Recorded V/S: Last Vital Signs Temp 36.6 C 07/22/18 20:42 Pulse 68 07/22/18 22:40 Resp 15 07/22/18 22:40 BP 116/68 07/22/18 22:40 Pulse Ox 99 07/22/18 22:40 - Orders/Labs/Meds Orders: Active Orders 24 hr Category Date Time Status OB 1st Tri Sgl 1st Gest [US] Stat Exams 07/22/18 20:54 Taken Labs: Laboratory Tests 07/22/18 07/22/18 07/22/18 Range/Units 21:05 21:11 21:11 WBC 9.10 (4.0-11.0) K/uL RBC 4.36 (4.30-5.90) M/uL Hgb 13.0 (12.0-16.0) g/dL Hct 38.2 (36.0-46.0) % MCV 87.6 (80.0-98.0) fL MCH 29.8 (27.0-32.0) pg MCHC 34.0 (31.0-37.0) g/dL RDW Std Deviation 43.0 (28.0-62.0) fl RDW Coeff of Codey 13 (11.0-15.0) % Plt Count 249 (150-400) K/uL MPV 10.50 (7.40-12.00) fL Neut % (Auto) 74.4 (48.0-80.0) % Lymph % (Auto) 16.8 (16.0-40.0) % [place] % (Auto) 6.6 (0.0-15.0) % Eos % (Auto) 1.8 (0.0-7.0) % Baso % (Auto) 0.4 (0.0-1.5) % Neut # (Auto) 6.8 H (1.4-5.7) K/uL Lymph # (Auto) 1.5 (0.6-2.4) K/uL [place] # (Auto) 0.6 (0.0-0.8) K/uL Eos # (Auto) 0.2 (0.0-0.7) K/uL Baso # (Auto) 0.0 (0.0-0.1) K/uL Nucleated RBC % 0.0 /100WBC Nucleated RBCs # 0 K/uL HCG, Quant 5434.0 mIU/mL Urine Color YELLOW Urine Appearance CLEAR Urine pH 6.5 (5.0-8.0) Ur Specific [place] <= 1.005 (1.001-1.035) Urine Protein NEGATIVE (NEGATIVE) mg/dL Urine Glucose (UA) NEGATIVE (NEGATIVE) mg/dL Urine Ketones NEGATIVE (NEGATIVE) mg/dL Urine Occult Blood NEGATIVE (NEGATIVE) Urine Nitrite NEGATIVE (NEGATIVE) Urine Bilirubin NEGATIVE (NEGATIVE) Urine Urobilinogen 0.2 (<2.0) EU/dL Ur Leukocyte Esterase NEGATIVE (NEGATIVE) Urine RBC 0-1 (0-2/HPF) Urine WBC 0-2 (0-5/HPF) Ur Epithelial Cells OCCASIONAL (NONE-FEW) Urine Bacteria RARE (NEGATIVE) Blood Type 07/22/18 Range/Units 21:11 WBC (4.0-11.0) K/uL RBC (4.30-5.90) M/uL Hgb (12.0-16.0) g/dL Hct (36.0-46.0) % MCV (80.0-98.0) fL MCH (27.0-32.0) pg MCHC (31.0-37.0) g/dL RDW Std Deviation (28.0-62.0) fl RDW Coeff of Codey (11.0-15.0) % Plt Count (150-400) K/uL MPV (7.40-12.00) fL Neut % (Auto) (48.0-80.0) % Lymph % (Auto) (16.0-40.0) % [place] % (Auto) (0.0-15.0) % Eos % (Auto) (0.0-7.0) % Baso % (Auto) (0.0-1.5) % Neut # (Auto) (1.4-5.7) K/uL Lymph # (Auto) (0.6-2.4) K/uL [place] # (Auto) (0.0-0.8) K/uL Eos # (Auto) (0.0-0.7) K/uL Baso # (Auto) (0.0-0.1) K/uL Nucleated RBC % /100WBC Nucleated RBCs # K/uL HCG, Quant mIU/mL Urine Color Urine Appearance Urine pH (5.0-8.0) Ur Specific [place] (1.001-1.035) Urine Protein (NEGATIVE) mg/dL Urine Glucose (UA) (NEGATIVE) mg/dL Urine Ketones (NEGATIVE) mg/dL Urine Occult Blood (NEGATIVE) Urine Nitrite (NEGATIVE) Urine Bilirubin (NEGATIVE) Urine Urobilinogen (<2.0) EU/dL Ur Leukocyte Esterase (NEGATIVE) Urine RBC (0-2/HPF) Urine WBC (0-5/HPF) Ur Epithelial Cells (NONE-FEW) Urine Bacteria (NEGATIVE) Blood Type A NEGATIVE Departure - Departure Time of Disposition: 23:10 Disposition: Home, Self-Care 01 Condition: Good Clinical Impression: Threatened - Discharge Information Referrals: PCP,None [Primary Care Provider] - Forms: ED Department Discharge Additional Instructions: The following information is given to patients seen in the emergency department who are being discharged to home. This information is to outline your options for follow-up care. We provide all patients seen in our emergency department with a follow-up referral. The need for follow-up, as well as the timing and circumstances, are variable depending upon the specifics of your emergency department visit. If you don't have a primary care physician on staff, we will provide you with a referral. We always advise you to contact your personal physician following an emergency department visit to inform them of the circumstance of the visit and for follow-up with them and/or the need for any referrals to a consulting specialist. The emergency department will also refer you to a specialist when appropriate. This referral assures that you have the opportunity for followup care with a specialist. All of these measure are taken in an effort to provide you with optimal care, which includes your followup. Under all circumstances we always encourage you to contact your private physician who remains a resource for coordinating your care. When calling for followup care, please make the office aware that this follow-up is from your recent emergency room visit. If for any reason you are refused follow-up, please contact the [facility] emergency department at and ask to speak to the emergency department charge nurse. [facility] [address] [place] [id number] [facility] [address] [place] [id number] Push fluids and strict pelvic rest until you're followed up in the clinic as we discussed. If you begin to bleed more heavily you on the to get the rogue and an you can do that with the clinic or return here to the ED. Please call and try to move your appointment with Perla the nurse log chipper operator so that you can be seen in the next 5-7 days or contact [facility] for follow-up as we discussed. Return to ER as needed and as discussed - My Orders Last 24 Hours: My Active Orders 07/22/18 20:54 OB 1st Tri Sgl 1st Gest [US] Stat - Assessment/Plan Last 24 Hours: My Active Orders 07/22/18 20:54 OB 1st Tri Sgl 1st Gest [US] Stat
[2018-07-22 23:19] VITALS: BP 108/67
--- NOTE | 2018-07-23 13:58 | US ---
EXAM DATE: 07/22/18 PATIENT'S AGE: 23 Patient: WALTER ARIAS Facility: [place], [place] Site . Site : 1995 Study: US OB Pelvis [id number]/18/2018 10:24:31 PM Ordering Physician: Susi Wu Final Report: HISTORY: Cramping and spotting. COMPARISON: None available of this gestation. TECHNIQUE: Transvaginal ultrasound examination of the early was performed. FINDINGS: A single intrauterine gestational sac is seen with a pole. The mean sac diameter measurement of 0.6 cm gives an estimated gestational age of 5 weeks 1 day with an estimated date of delivery of 03/23/2019. This does not correlate well with the LMP of 05/14/2018 which gives a clinical age of 9 weeks 6 days. A pole cannot yet be identified, although a possible yolk sac is seen. There is no sign of free fluid in the pelvis. The right ovary contains a complex cyst filled with low-level echoes, consistent with a corpus luteum cyst of . This measures up to 3.0 centimeters in diameter. The left ovary is normal in appearance. Normal color Doppler flow is seen in both ovaries. IMPRESSION: SINGLE INTRAUTERINE GESTATION WITH ESTIMATED AGE OF 5 WEEKS 1 DAY. A POLE CANNOT YET BE IDENTIFIED. COMPLEX CYST IN THE RIGHT OVARY, PROBABLY CORPUS LUTEUM CYST OF . Dictated by Lon Pavon MD @ Jul 22 2018 10:33PM (Electronic Signature) Report Signed by Proxy. LEX
== END 2018-07-22 23:20 | disposition home or self-care (01) ==
LOC: MW.ED 20:33
DX: O20.0 Threatened abortion (principal); Z88.0 Allergy status to penicillin; Z79.899 Other long term (current) drug therapy; Z3A.20 20 weeks gestation of pregnancy
CPT/HCPCS: 36415; 76801; 76801-26; 81001; 84702; 85025; 86900; 86901; 99283; 99284-25

== ENCOUNTER 2019-02-27 01:45 | Inpatient (IN) | payer MEDICAID ==
[2019-02-27] MEDS ORDERED: Clindamycin Phosphate in D5W 900 MG in Premix Bag 1 BAG IV SCH ×2 (02:00)
[2019-02-27] MEDS ORDERED: Misoprostol 200 MCG Tab PO PRN (02:08)
[2019-02-27] MEDS ORDERED: Sodium Chloride 0.9% 10 ML SDV IV PRN (02:08)
[2019-02-27] MEDS ORDERED: Sodium Chloride 0.9% 2.5 ML Syringe FLUSH PRN (02:08)
[2019-02-27] MEDS ORDERED: Sodium Chloride 0.9% 10 ML Syringe FLUSH PRN (02:08)
[2019-02-27] MEDS ORDERED: Carboprost Tromethamine 250 MCG/1 ML Amp IM PRN (02:08)
[2019-02-27] MEDS ORDERED: Methylergonovine 0.2 MG/1 ML Amp IM PRN (02:08)
[2019-02-27] MEDS ORDERED: Water For Irrigation,Sterile 1,000 ML Container IRR PRN (02:08)
[2019-02-27] MEDS ORDERED: Tranexamic Acid 1,000 MG in Sodium Chloride 0.9% 100 ML IV PRN (02:08)
[2019-02-27] MEDS ORDERED: Nalbuphine 10 MG/1 ML Vial IVPUSH PRN (02:08)
[2019-02-27] MEDS ORDERED: Lidocaine 1% 50 ML MDV INJECT PRN (02:08)
[2019-02-27] MEDS ORDERED: Oxytocin/0.9 % Sodium Chloride 30 UNIT/500 ML BAG IV SCH (02:15)
[2019-02-27] MEDS: Lactated Ringers 1,000 ML IV SCH ×2 (03:07→04:29)
--- NOTE | 2019-02-27 03:36 | PCM.LDHP ---
L&D History of Present Illness - General Date of Service: 02/27/19 Admit Problem/Dx: Patient Status Order with Admit Dx/Problem 02/27/19 02:08 Patient Status [ADT] Routine Admission Diagnosis/Problem Admission Diagnosis/Problem 02/27/19 03:31 24yo EDC 03/19/2019 37 1/7wks, Cerclage removed last week and comes in active labor, A neg, RI, GBS unknown. SVE 5/C/BBOW Source of Information: Patient History Limitations: Reports: No Limitations - History of Present Illness Timing/Duration: Reports: minutes: Location, : Reports: Abdomen Quality: Reports: Burning, Stabbing Severity: Severe Improves with: Reports: None Worsens with: Reports: None Associated Symptoms: Reports: N - Related Data Allergies/Adverse Reactions: Allergies Allergy/AdvReac Type Severity Reaction Status Date / Time Penicillins Allergy Anaphylactic Verified 02/27/19 02:01 Shock Home Medications: Home Meds Vits #93/Iron Fum/FA [ Formula Tablet] 1 tab PO DAILY 07/22/18 [History] Past Medical History - Past Health History Medical/Surgical History: Denies Medical/Surgical History HEENT History: Reports: None Cardiovascular History: Reports: None Respiratory History: Reports: None Gastrointestinal History: Reports: Cholelithiasis, Other (See Below) Other Gastrointestinal History: heartburn during Genitourinary History: Reports: None 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: , 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 Musculoskeletal History: Reports: Fibromyalgia Other Musculoskeletal History: fibromyalgia Neurological History: Reports: Other (See Below) Other Neuro History: hx of motion sickness Psychiatric History: Reports: None Endocrine/Metabolic History: Reports: None, Obesity/BMI 30+ Hematologic History: Reports: None Immunologic History: Reports: Other (See Below) Other Immunologic History: Lupus Oncologic (Cancer) History: Reports: None Dermatologic History: Reports: Other (See Below) Other Dermatologic History: raynauds to hands and feet - Infectious Disease History Infectious Disease History: Reports: None - Past Surgical History Head Surgeries/Procedures: Reports: None HEENT Surgical History: Reports: Adenoidectomy, Myringotomy w Tube(s), Tonsillectomy Cardiovascular Surgical History: Reports: None GI Surgical History: Reports: Cholecystectomy Social & Family History - Family History Family Medical History: Unobtainable - Caffeine Use Caffeine Use: Reports: Coffee Caffeine Use Comment: stopped when she found out H&P Review of Systems - Review of Systems: Review Of Systems: See Below General: Reports: No Symptoms HEENT: Reports: No Symptoms Pulmonary: Reports: No Symptoms Cardiovascular: Reports: No Symptoms Gastrointestinal: Reports: No Symptoms Genitourinary: Reports: No Symptoms Musculoskeletal: Reports: No Symptoms Skin: Reports: No Symptoms Psychiatric: Reports: No Symptoms Neurological: Reports: No Symptoms Hematologic/Lymphatic: Reports: No Symptoms Immunologic: Reports: No Symptoms L&D Exam - Exam Exam: See Below - Vital Signs Weight: 78.471 kg - OB Specific Contraction Intensity: Strong Movement: Active Heart Tones: Present Heart Tones per Min: 120 Heart Rate (FHR) Variability: Moderate (6-25 bmp) Presentation: Vertex - Hammer Score Hammer Score Cervix Position: Midposition Hammer Score Consistency: Soft Hammer Score Effacement: >80% Hammer Score Dilation: > 5 cm Hammer Score Infant's Station: -2 Hammer Score Total: 10 - Exam General: Alert, Oriented, Cooperative Lungs: Clear to Auscultation, Normal Respiratory Effort. No: Decreased Breath Sounds Cardiovascular: Regular Rate, Regular Rhythm, Normal S1, Normal S2. No: Irregular Rhythm GI/Abdominal Exam: Soft, Non-Tender Rectal Exam: Deferred Genitourinary: Normal external exam, Cervical dilitation Back Exam: Normal Inspection, Full Range of Motion Extremities: Normal Inspection, Normal Range of Motion, Non-Tender, No Pedal Edema Skin: Warm, Dry, Intact Neurological: Cranial Nerves Intact, Strength Equal Bilateral, Normal Speech, Normal Tone Psychiatric: Alert, Normal Affect, Normal Mood - Patient Data Lab Results Last 24 hrs: Laboratory Results - last 24 hr 02/27/19 02/27/19 Range/Units 02:20 02:20 WBC 13.82 H (4.0-11.0) K/uL RBC 4.01 L (4.30-5.90) M/uL Hgb 12.2 (12.0-16.0) g/dL Hct 36.5 (36.0-46.0) % MCV 91.0 (80.0-98.0) fL MCH 30.4 (27.0-32.0) pg MCHC 33.4 (31.0-37.0) g/dL RDW Std Deviation 42.7 (28.0-62.0) fl RDW Coeff of Codey 13 (11.0-15.0) % Plt Count 307 (150-400) K/uL MPV 10.10 (7.40-12.00) fL Nucleated RBC % 0.0 /100WBC Nucleated RBCs # 0 K/uL Blood Type A NEGATIVE Antibody Screen NEGATIVE Result Diagrams: 02/27/19 02:20 - Problem List (1) Supervision of normal IUP (intrauterine ) in multigravida SNOMED Code(s): 096031811, 452280419, [id number] ICD Code: Z34.80 - ENCOUNTER FOR SUPRVSN OF NORMAL , UNSP TRIMESTER Status: Acute Priority: High Current Visit: Yes Qualifiers: Trimester: third trimester Qualified Code(s): Z34.83 - Encounter for supervision of other normal , third trimester Problem List Initiated/Reviewed/Updated: Yes Orders Last 24hrs: Active Orders 24 hr Category Date Time Status Patient Status [ADT] Routine ADT 02/27/19 02:08 Active Heart Tones [RC] CONTINUOUS Care 02/27/19 02:08 Active Non Stress Test [RC] PER UNIT ROUTINE Care 02/27/19 02:08 Active May Shower [RC] ASDIRECTED Care 02/27/19 02:08 Active Notify Provider [RC] PRN Care 02/27/19 02:08 Active Up ad Isabel [RC] ASDIRECTED Care 02/27/19 02:08 Active Vaginal Exam [RC] PRN Care 02/27/19 02:08 Active Vital Signs [RC] PER UNIT ROUTINE Care 02/27/19 02:08 Active Carboprost Tromethamine [Hemabate DS] Med 02/27/19 02:08 Active 250 mcg IM ASDIRECTED PRN Clindamycin Phosphate in D5W [Cleocin in D5W] 900 mg Med 02/27/19 02:00 Active Premix Bag 1 bag IV Q8H Lactated Ringers [Ringers, Lactated] 1,000 ml Med 02/27/19 02:15 Active IV ASDIRECTED Lidocaine 1% [Xylocaine 1%] Med 02/27/19 02:08 Active 50 ml INJECT ONETIME PRN Methylergonovine [Methergine] Med 02/27/19 02:08 Active 0.2 mg IM ASDIRECTED PRN Nalbuphine [Nubain] Med 02/27/19 02:08 Active 10 mg IVPUSH Q1H PRN Oxytocin/0.9 % Sodium Chloride [Oxytocin 30 Unit/500 ML Med 02/27/19 02:15 Active -NS] 30 unit in 500 ml IV TITRATE Sodium Chloride 0.9% [Normal Saline] Med 02/27/19 02:08 Active 10 ml IV ASDIRECTED PRN Sodium Chloride 0.9% [Saline Flush] Med 02/27/19 02:08 Active 10 ml FLUSH ASDIRECTED PRN Sodium Chloride 0.9% [Saline Flush] Med 02/27/19 02:08 Active 2.5 ml FLUSH ASDIRECTED PRN Tranexamic Acid [Cyklokapron] 1,000 mg Med 02/27/19 02:08 Active Sodium Chloride 0.9% [Normal Saline] 100 ml IV ONETIME Water For Irrigation,Sterile [Sterile Water for Med 02/27/19 02:08 Active Irrigation] 1,000 ml IRR ASDIRECTED PRN miSOPROStol [Cytotec] Med 02/27/19 02:08 Active 200 mcg PO ONETIME PRN Scalp Electrode [WOMSER] Per Unit Routine Oth 02/27/19 02:08 Ordered Peripheral IV Insertion Adult [OM.PC] Routine Oth 02/27/19 02:08 Ordered Resuscitation Status Routine Resus Stat 02/27/19 02:08 Ordered Medication Orders Carboprost Tromethamine (Hemabate Ds) 250 mcg IM ASDIRECTED PRN PRN Reason: Post Hemorrhage Clindamycin Phosphate 900 mg/ (Premix) 50 mls @ 100 mls/hr IV Q8H [facility] Last Admin: 02/27/19 03:06 Dose: 100 mls/hr Lactated Ringer's (Ringers, Lactated) 1,000 mls @ 150 mls/hr IV ASDIRECTED [facility] Last Admin: 02/27/19 03:07 Dose: 150 mls/hr Oxytocin/Sodium Chloride (Oxytocin 30 Unit/500 Ml-Ns) 30 unit in 500 mls @ 999 mls/hr IV TITRATE [facility] Tranexamic Acid 1,000 mg/ (Sodium Chloride) 110 mls @ 660 mls/hr IV ONETIME PRN PRN Reason: Bleeding Lidocaine HCl (Xylocaine 1%) 50 ml INJECT ONETIME PRN PRN Reason: Laceration repair Methylergonovine Maleate (Methergine) 0.2 mg IM ASDIRECTED PRN PRN Reason: Post Hemorrhage Misoprostol (Cytotec) 200 mcg PO ONETIME PRN PRN Reason: Post Hemorrhage Nalbuphine HCl (Nubain) 10 mg IVPUSH Q1H PRN PRN Reason: Pain (severe 7-10) Sodium Chloride (Saline Flush) 10 ml FLUSH ASDIRECTED PRN PRN Reason: Keep Vein Open Sodium Chloride (Saline Flush) 2.5 ml FLUSH ASDIRECTED PRN PRN Reason: Keep Vein Open Sodium Chloride (Normal Saline) 10 ml IV ASDIRECTED PRN PRN Reason: IV Use Sterile Water (Sterile Water For Irrigation) 1,000 ml IRR ASDIRECTED PRN PRN Reason: delivery Assessment/Plan Comment:: Labor A: 24yo EDC 03/19/2019 37 1/7wks, Cerclage removed last week and comes in active labor, A neg, RI, GBS unknown. SVE 5/C/BBOW P: Admit, epidural now, Clindamycin for GBS unkwn and PCN allergy, anticipate . Dr Serrano updated
[2019-02-27] MEDS ORDERED: Lidocaine HCl/EPINEPHrine 5 ML IJ ONE (03:46)
--- NOTE | 2019-02-27 04:13 | PCM.PREANE ---
Preanesthetic Assessment - Anesthesia/Transfusion/Family Hx Anesthesia History: Prior Anesthesia Without Reaction Family History of Anesthesia Reaction: No Transfusion History: No Prior Transfusion(s) Intubation History: Unknown - Review of Systems General: No Symptoms Pulmonary: No Symptoms Cardiovascular: No Symptoms Gastrointestinal: No Symptoms Neurological: No Symptoms - Physical Assessment NPO Status Date: 02/27/19 NPO Status Time: 03:00 Height: 5 ft 8 in Weight: 78.471 kg ASA Class: 2E Mental Status: Alert & Oriented x3 Airway Class: Mallampati = 1 Dentition: Reports: Normal Dentition Thyro-Mental Finger Breadths: 3 ROM/Head Extension: Full Lungs: Clear to Auscultation, Normal Respiratory Effort Cardiovascular: Regular Rate, Regular Rhythm - Lab Values: Laboratory Last Values WBC 13.82 K/uL (4.0-11.0) H 02/27/19 02:20 RBC 4.01 M/uL (4.30-5.90) L 02/27/19 02:20 Hgb 12.2 g/dL (12.0-16.0) 02/27/19 02:20 Hct 36.5 % (36.0-46.0) 02/27/19 02:20 MCV 91.0 fL (80.0-98.0) 02/27/19 02:20 MCH 30.4 pg (27.0-32.0) 02/27/19 02:20 MCHC 33.4 g/dL (31.0-37.0) 02/27/19 02:20 RDW Std Deviation 42.7 fl (28.0-62.0) 02/27/19 02:20 RDW Coeff of Codey 13 % (11.0-15.0) 02/27/19 02:20 Plt Count 307 K/uL (150-400) 02/27/19 02:20 MPV 10.10 fL (7.40-12.00) 02/27/19 02:20 Nucleated RBC % 0.0 /100WBC 02/27/19 02:20 Nucleated RBCs # 0 K/uL 02/27/19 02:20 Blood Type A NEGATIVE 02/27/19 02:20 Antibody Screen NEGATIVE 02/27/19 02:20 - Allergies Allergies/Adverse Reactions: Allergies Allergy/AdvReac Type Severity Reaction Status Date / Time Penicillins Allergy Anaphylactic Verified 02/27/19 02:01 Shock - Acknowledgements Anesthesia Type Planned: Epidural Pt an Appropriate Candidate for the Planned Anesthesia: Yes Alternatives and Risks of Anesthesia Discussed w Pt/Guardian: Yes Pt/Guardian Understands and Agrees with Anesthesia Plan: Yes Additional Comments: - 37 weeks and 5 cm. Delivered last baby at 32 weeks. Had cerclage up until few days ago with this baby. 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 Musculoskeletal History: Reports: Fibromyalgia Other Musculoskeletal History: fibromyalgia Neurological History: Reports: Other (See Below) Other Neuro History: hx of motion sickness Psychiatric History: Reports: None Endocrine/Metabolic History: Reports: None, Obesity/BMI 30+ Hematologic History: Reports: None Immunologic History: Reports: Other (See Below) Other Immunologic History: Lupus Oncologic (Cancer) History: Reports: None Dermatologic History: Reports: Other (See Below) Other Dermatologic History: raynauds to hands and feet - Infectious Disease History Infectious Disease History: Reports: None - Past Surgical History Head Surgeries/Procedures: Reports: None HEENT Surgical History: Reports: Adenoidectomy, Myringotomy w Tube(s), Tonsillectomy Cardiovascular Surgical History: Reports: None GI Surgical History: Reports: Cholecystectomy - HOME MEDS Home Medications: Home Meds Vits #93/Iron Fum/FA [ Formula Tablet] 1 tab PO DAILY 07/22/18 [History] - CURRENT (IN HOUSE) MEDS Current Meds: Current Medications Carboprost Tromethamine (Hemabate Ds) 250 mcg IM ASDIRECTED PRN PRN Reason: Post Hemorrhage Clindamycin Phosphate 900 mg/ (Premix) 50 mls @ 100 mls/hr IV Q8H [facility] Last Admin: 02/27/19 03:06 Dose: 100 mls/hr Lactated Ringer's (Ringers, Lactated) 1,000 mls @ 150 mls/hr IV ASDIRECTED [facility] Last Admin: 02/27/19 03:07 Dose: 150 mls/hr Oxytocin/Sodium Chloride (Oxytocin 30 Unit/500 Ml-Ns) 30 unit in 500 mls @ 999 mls/hr IV TITRATE [facility] Tranexamic Acid 1,000 mg/ (Sodium Chloride) 110 mls @ 660 mls/hr IV ONETIME PRN PRN Reason: Bleeding Lidocaine HCl (Xylocaine 1%) 50 ml INJECT ONETIME PRN PRN Reason: Laceration repair Methylergonovine Maleate (Methergine) 0.2 mg IM ASDIRECTED PRN PRN Reason: Post Hemorrhage Misoprostol (Cytotec) 200 mcg PO ONETIME PRN PRN Reason: Post Hemorrhage Nalbuphine HCl (Nubain) 10 mg IVPUSH Q1H PRN PRN Reason: Pain (severe 7-10) Sodium Chloride (Saline Flush) 10 ml FLUSH ASDIRECTED PRN PRN Reason: Keep Vein Open Sodium Chloride (Saline Flush) 2.5 ml FLUSH ASDIRECTED PRN PRN Reason: Keep Vein Open Sodium Chloride (Normal Saline) 10 ml IV ASDIRECTED PRN PRN Reason: IV Use Sterile Water (Sterile Water For Irrigation) 1,000 ml IRR ASDIRECTED PRN PRN Reason: delivery Discontinued Medications Fentanyl/Bupivacaine HCl (Owvkoesw-Deoxc-Yu 2 Mcg/Ml-0.125%) Confirm Administered Dose 100 mls @ as directed .ROUTE .STK-MED ONE Stop: 02/27/19 03:44 Lidocaine/Epinephrine (Lidocaine 1.5%-Epi 1:200,000) Confirm Administered Dose 5 ml IJ .STK-MED ONE Stop: 02/27/19 03:47
[2019-02-27] MEDS ORDERED: oxyCODONE 5 MG Tab PO PRN (10:34)
[2019-02-27] MEDS ORDERED: Witch Hazel Medicated Pads 40/Jar TOP PRN (10:34)
[2019-02-27] MEDS ORDERED: Acetaminophen 500 MG Tab PO PRN ×2 (10:34)
[2019-02-27] MEDS ORDERED: Bisacodyl 10 MG Supp RECTAL PRN (10:34)
[2019-02-27] MEDS ORDERED: Benzocaine/Menthol 20%-0.5% Spray 78 GM Cannister TOP PRN (10:34)
[2019-02-27] MEDS ORDERED: Docusate Sodium 100 MG Cap PO PRN (10:34)
[2019-02-27] MEDS ORDERED: Ibuprofen 400 MG Tab PO PRN (10:34)
[2019-02-27] MEDS ORDERED: Lanolin 100% Cream 7 GM Tube TOP PRN (10:34)
[2019-02-27] MEDS: Ibuprofen 800 MG Tab PO PRN ×2 (13:06→19:35)
--- NOTE | 2019-02-27 14:12 | PCM.POSTAN ---
POST ANESTHESIA ASSESSMENT - MENTAL STATUS Mental Status: Alert, Oriented - RESPIRATORY Respiratory Status: Respiratory Rate WNL, Airway Patent, O2 Saturation Stable - CARDIOVASCULAR CV Status: Pulse Rate WNL, Blood Pressure Stable - GASTROINTESTINAL GI Status: No Symptoms - POST OP HYDRATION Hydration Status: Adequate & Stable (delivered and doing well. legs still slightly numb) - OBSERVATIONS Free Text/Narrative:: Delivered and doing well. Legs are still slightly numb.
--- NOTE | 2019-02-27 18:13 | OR ---
SURGEON: Sonny Serrano MD DATE OF PROCEDURE: DELIVERY NOTE: Ms. Wyman is a 24-year-old patient. She is para 0-1-0-1. She had previous premature delivery. She is followed in our clinic primarily by me. Ms. Wyman in this , she had cerclage at 16 weeks performed by me and it was removed at 36 weeks. She is admitted in active labor. Her GBS status was negative. Other than the cerclage, the patient's care was essentially uncomplicated. At the time of admission, she was 5-6 cm with bulging bag of water and then she had a spontaneous rupture of water of clear fluid, then she had epidural anesthesia for labor analgesia. The patient continued to progress spontaneously, and she was able to accomplish normal spontaneous vaginal delivery of a male fetus. scores reported to be 9 and 9. The placenta delivered spontaneous, complete, and intact. ESTIMATED BLOOD LOSS: 250-300 mL. heart rate was category 1 through the entire process of labor. There was no complication in the labor process and delivery. DEMETRIA / GENESIS /[id number]
[2019-02-28] MEDS: Ibuprofen 800 MG Tab PO PRN (06:14)
[2019-02-28 08:49] VITALS: BP 160/70
--- NOTE | 2019-02-28 11:20 | PCM.PNPP ---
- General Info Date of Service: 02/28/19 Functional Status: Reports: Pain Controlled - Review of Systems General: Reports: No Symptoms HEENT: Reports: No Symptoms Pulmonary: Reports: No Symptoms Cardiovascular: Reports: No Symptoms Gastrointestinal: Reports: No Symptoms Genitourinary: Reports: No Symptoms Musculoskeletal: Reports: No Symptoms Skin: Reports: No Symptoms Neurological: Reports: No Symptoms Psychiatric: Reports: No Symptoms - General Info Date of Service: 02/28/19 - Patient Data Vital Signs - Most Recent: Last Vital Signs Temp 36.4 C 02/28/19 08:47 Pulse 68 02/28/19 08:47 Resp 16 02/28/19 08:47 BP 160/70 H 02/28/19 08:47 Pulse Ox 98 02/28/19 08:47 Weight - Most Recent: 78.471 kg Lab Results - Last 24 Hours: Laboratory Results - last 24 hr 02/28/19 Range/Units 06:03 Hgb 11.6 L (12.0-16.0) g/dL Hct 35.9 L (36.0-46.0) % Med Orders - Current: Current Medications Acetaminophen (Tylenol Extra Strength) 500 mg PO Q4H PRN PRN Reason: Pain Acetaminophen (Tylenol Extra Strength) 1,000 mg PO Q4H PRN PRN Reason: Pain Last Admin: 02/27/19 22:53 Dose: 1,000 mg Benzocaine/Menthol (Dermoplast Pain Relief 20%-0.5% Madill) 78 gm TOP ASDIRECTED PRN PRN Reason: Perineal Comfort Measure Last Admin: 02/27/19 12:05 Dose: 1 applic Bisacodyl (Dulcolax) 10 mg RECTAL ONETIME PRN PRN Reason: Constipation Carboprost Tromethamine (Hemabate Ds) 250 mcg IM ASDIRECTED PRN PRN Reason: Post Hemorrhage Docusate Sodium (Colace) 100 mg PO BID PRN PRN Reason: Constipation Last Admin: 02/27/19 20:43 Dose: 100 mg Emollient Ointment (Lansinoh Hpa) 0 gm TOP ASDIRECTED PRN PRN Reason: Sore Nipples Last Admin: 02/27/19 12:05 Dose: 1 applic Clindamycin Phosphate 900 mg/ (Premix) 50 mls @ 100 mls/hr IV Q8H [facility] Last Admin: 02/27/19 03:06 Dose: 100 mls/hr Lactated Ringer's (Ringers, Lactated) 1,000 mls @ 150 mls/hr IV ASDIRECTED [facility] Last Admin: 02/27/19 04:29 Dose: 150 mls/hr Oxytocin/Sodium Chloride (Oxytocin 30 Unit/500 Ml-Ns) 30 unit in 500 mls @ 999 mls/hr IV TITRATE [facility] Last Admin: 02/27/19 09:45 Dose: 999 mls/hr Tranexamic Acid 1,000 mg/ (Sodium Chloride) 110 mls @ 660 mls/hr IV ONETIME PRN PRN Reason: Bleeding Ibuprofen (Motrin) 400 mg PO Q4H PRN PRN Reason: Pain Ibuprofen (Motrin) 800 mg PO Q6H PRN PRN Reason: Pain Last Admin: 02/28/19 06:14 Dose: 800 mg Lidocaine HCl (Xylocaine 1%) 50 ml INJECT ONETIME PRN PRN Reason: Laceration repair Methylergonovine Maleate (Methergine) 0.2 mg IM ASDIRECTED PRN PRN Reason: Post Hemorrhage Misoprostol (Cytotec) 200 mcg PO ONETIME PRN PRN Reason: Post Hemorrhage Nalbuphine HCl (Nubain) 10 mg IVPUSH Q1H PRN PRN Reason: Pain (severe 7-10) Oxycodone HCl (Oxycodone) 5 mg PO Q2H PRN PRN Reason: Pain Sodium Chloride (Saline Flush) 10 ml FLUSH ASDIRECTED PRN PRN Reason: Keep Vein Open Sodium Chloride (Saline Flush) 2.5 ml FLUSH ASDIRECTED PRN PRN Reason: Keep Vein Open Sodium Chloride (Normal Saline) 10 ml IV ASDIRECTED PRN PRN Reason: IV Use Sterile Water (Sterile Water For Irrigation) 1,000 ml IRR ASDIRECTED PRN PRN Reason: delivery Witch Thea (Tucks) 1 pad TOP ASDIRECTED PRN PRN Reason: comfort care Last Admin: 02/27/19 20:44 Dose: 1 pad Discontinued Medications Fentanyl/Bupivacaine HCl (Liszusls-Ezrji-Dp 2 Mcg/Ml-0.125%) Confirm Administered Dose 100 mls @ as directed .ROUTE .STK-MED ONE Stop: 02/27/19 03:44 Last Admin: 02/27/19 05:18 Dose: Not Given Lidocaine/Epinephrine (Lidocaine 1.5%-Epi 1:200,000) Confirm Administered Dose 5 ml IJ .STK-MED ONE Stop: 02/27/19 03:47 Last Admin: 02/27/19 05:18 Dose: Not Given - Interaction Disposition, : [place] in Room with Family Infant Interaction: Holding Infant Feeding: Attempted ; Nursed Fair/Poor Support Person: Significant Other - Recovery Exam Fundal Tone: Firm Fundal Level: At Umbilicus Fundal Placement: Midline Lochia Amount: Scant Lochia Color: Rubra/Red Bladder Status: Voiding - Exam General: Alert, Oriented HEENT: Pupils Equal Neck: Supple Lungs: Clear to Auscultation, Normal Respiratory Effort Cardiovascular: Regular Rate, Regular Rhythm GI/Abdominal Exam: Normal Bowel Sounds, Soft, Non-Tender, No Organomegaly, No Distention, No Abnormal Bruit, No Mass, Pelvis Stable Extremities: Normal Inspection, Normal Range of Motion, Non-Tender, No Pedal Edema, Normal Capillary Refill Skin: Warm, Dry, Intact Wound/Incisions: Healing Well Neurological: No New Focal Deficit Psy/Mental Status: Alert, Normal Affect, Normal Mood - Problem List Review Problem List Initiated/Reviewed/Updated: Yes - My Orders Last 24 Hours: My Active Orders 02/27/19 10:34 Patient Status [ADT] Routine May Shower [RC] ASDIRECTED Up ad Isabel [RC] ASDIRECTED Vital Signs [RC] PER UNIT ROUTINE Acetaminophen [Tylenol Extra Strength] 1,000 mg PO Q4H PRN Acetaminophen [Tylenol Extra Strength] 500 mg PO Q4H PRN Benzocaine/Menthol [Dermoplast Pain Relief 20%-0.5% Madill] 78 gm TOP ASDIRECTED PRN Bisacodyl [Dulcolax] 10 mg RECTAL ONETIME PRN Docusate Sodium [Colace] 100 mg PO BID PRN Ibuprofen [Motrin] 400 mg PO Q4H PRN Ibuprofen [Motrin] 800 mg PO Q6H PRN Lanolin [Lansinoh HPA] See Dose Instructions TOP ASDIRECTED PRN Witch Thea [Tucks] 1 pad TOP ASDIRECTED PRN oxyCODONE 5 mg PO Q2H PRN Assess Lochia [WOMSER] Per Unit Routine Assess Uterine Involution [WOMSER] Per Unit Routine Peripheral IV Discontinue [OM.PC] Routine 02/27/19 Lunch Regular Diet [DIET] - Plan Plan:: Labor A: 24yo EDC 03/19/2019 37 1/7wks, Cerclage removed last week and comes in active labor, A neg, RI, GBS unknown. SVE 5/C/BBOW P: Admit, epidural now, Clindamycin for GBS unkwn and PCN allergy, anticipate . Dr Serrano updated
== END 2019-02-28 14:05 | disposition home or self-care (01) | DRG 807 ==
LOC: MW.OBCHECK 01:45 → MW.OB 01:46 → MW.OBCHECK 02:08 → OBSVTOIN 09:39 → MW.OB 13:00
PROVIDERS: ADMIT Obstetrics & Gynecology; ATTEND Obstetrics & Gynecology
PROC: 10E0XZZ Delivery of Products of Conception, External Approach (ICD-10-PCS; principal; 2019-02-27)
PROC: 3E0R3BZ Introduction of Anesthetic Agent into Spinal Canal, Percutaneous Approach (ICD-10-PCS; 2019-02-27)
PROC: 00HU33Z Insertion of Infusion Device into Spinal Canal, Percutaneous Approach (ICD-10-PCS; 2019-02-27)
DX: O80 Encounter for full-term uncomplicated delivery (principal); Z37.0 Single live birth; Z3A.37 37 weeks gestation of pregnancy
CPT/HCPCS: 36415; 51702; 59025; 59409; 85014; 85018; 85027; 86850; 86900; 86901; A9270-GY; J2590; J3490; J7120

== ENCOUNTER 2019-04-15 23:58 | Emergency (ER) | payer MEDICAID ==
[2019-04-16] MEDS ORDERED: Sodium Chloride 0.9% 1,000 ML IV ONE (00:19)
[2019-04-16] MEDS ORDERED: methylPREDNISolone Sodium Succinate 125 MG/2 ML SDV IVPUSH ONE (00:19)
[2019-04-16] MEDS ORDERED: Ketorolac 30 MG/ML SDV IVPUSH ONE (00:19)
[2019-04-16] MEDS ORDERED: Ondansetron 4 MG/2 ML SDV IVPUSH ONE (00:19)
[2019-04-16] MEDS ORDERED: diphenhydrAMINE 50 MG/ML SDV IVPUSH ONE (00:19)
[2019-04-16] MEDS ORDERED: Sodium Chloride 0.9% 2.5 ML Syringe FLUSH PRN (00:19)
[2019-04-16] MEDS ORDERED: Sodium Chloride 0.9% 10 ML Syringe FLUSH PRN (00:19)
--- NOTE | 2019-04-16 00:25 | EDM.PDOC ---
ED HPI GENERAL MEDICAL PROBLEM - General Chief Complaint: Headache Stated Complaint: MIGRAINE Time Seen by Provider: 04/16/19 00:05 - History of Present Illness INITIAL COMMENTS - FREE TEXT/NARRATIVE: HISTORY AND PHYSICAL: History of present illness: The patient is a 24-year-old female with no headache history who gets headaches occasionally and recently had a baby February 27 and is currently not breast- feeding and says that she woke with a headache this morning which was at the top of her head and radiated to her frontal scalp and forehead as well as to the back of her head. She said that she took a dose of ibuprofen that she was given when she delivered her baby and she is not sure of that dose and it made the headache go away. Should a completely normal day today with no fevers chills nausea vomiting abdominal pain headaches neck pain or trauma. The patient said that at about 10 PM she started getting a headache again in the same location in the same character and she was nauseated and vomited once. She said she again took a dose of ibuprofen and it didn't help so she came here. She did not try any Tylenol or any other [id number] medications. The patient denies any recent illnesses and says she does not have seasonal allergies or hayfever and has a slight runny nose but is not sneezing or coughing. She again has no abdominal complaints other than the nausea and one episode of vomiting she has no visual changes. She says the light hurts her eyes. She registered as a migrane because she believes that she has a migraine although she has never been diagnosed with that as her mother and sister have diagnoses of migraines and she thinks that because of the character this headache with the nausea that she also has migraines. She has never seen a physician specifically for headaches and does not get them that often. Patient denies Review of systems: As per history of present illness and below otherwise all systems reviewed and negative. Past medical history: As per history of present illness and as reviewed below otherwise noncontributory. Surgical history: As per history of present illness and as reviewed below otherwise noncontributory. Social history: No reported history of drug or alcohol abuse. Family history: As per history of present illness and as reviewed below otherwise noncontributory. Physical exam: General: Well-developed well-nourished female who is nontoxic and vital signs are noted by me. She moves easily in the ED without distress HEENT: Atraumatic, normocephalic, there is tenderness with palpation of the scalp throughout the midline from the frontal scalp to the top of the head and just to superior of the occipital area without any defects or soft tissue swelling, there is no occipital groove tenderness specifically, pupils reactive , negative for conjunctival pallor or scleral icterus, mucous membranes moist, throat clear, neck supple, nontender, trachea midline. There is no sinus tenderness no cervical adenopathy or nuchal rigidity no midline C-spine tenderness or muscle spasm. When I palpate the scalp the patient grimaces and says that this causes her to have pain. Lungs: Clear to auscultation, breath sounds equal bilaterally, chest nontender. Heart: S1S2, regular, rate and rhythm no overt murmurs Abdomen: Soft, nondistended, nontender. Negative for masses or hepatosplenomegaly. Negative for costovertebral tenderness. Pelvis: Stable nontender. Genitourinary: Deferred. Rectal: Deferred. Extremities: Atraumatic, negative for cords or calf pain. Neurovascular unremarkable. Neuro: Awake, alert, oriented. Cranial nerves II through XII unremarkable. Cerebellum unremarkable. Motor and sensory unremarkable throughout. Exam nonfocal. Diagnostics: None--discussed with the patient CT scan of the head and she would like to decline and just received pain medication Therapeutics: IV fluids Toradol Zofran Benadryl Solu-Medrol Ori is completely gone and patient will like to go home. Advised her to start a headache journal as this will help delineate the nature of these headaches and best treatment options for her provider going forward. I advised hydration and as much rest as possible Impression: Headache Definitive disposition and diagnosis as appropriate pending reevaluation and review of above. headache Pain Score (Numeric/FACES): 8 - Related Data Allergies Allergy/AdvReac Type Severity Reaction Status Date / Time Penicillins Allergy Anaphylactic Verified 04/16/19 00:12 Shock Home Meds: Home Meds Vits #93/Iron Fum/FA [ Formula Tablet] 1 tab PO DAILY 07/22/18 [History] Past Medical History - Past Health History Medical/Surgical History: Denies Medical/Surgical History HEENT History: Reports: None Cardiovascular History: Reports: None Respiratory History: Reports: None Gastrointestinal History: Reports: Cholelithiasis, Other (See Below) Other Gastrointestinal History: heartburn during Genitourinary History: Reports: None 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: , 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 Musculoskeletal History: Reports: Fibromyalgia Other Musculoskeletal History: fibromyalgia Neurological History: Reports: Other (See Below) Other Neuro History: hx of motion sickness Psychiatric History: Reports: None Endocrine/Metabolic History: Reports: None, Obesity/BMI 30+ Hematologic History: Reports: None Immunologic History: Reports: Other (See Below) Other Immunologic History: Lupus Oncologic (Cancer) History: Reports: None Dermatologic History: Reports: Other (See Below) Other Dermatologic History: raynauds to hands and feet - Infectious Disease History Infectious Disease History: Reports: None - Past Surgical History Head Surgeries/Procedures: Reports: None HEENT Surgical History: Reports: Adenoidectomy, Myringotomy w Tube(s), Tonsillectomy Cardiovascular Surgical History: Reports: None GI Surgical History: Reports: Cholecystectomy Social & Family History - Family History Family Medical History: Unobtainable - Caffeine Use Caffeine Use: Reports: Coffee Caffeine Use Comment: stopped when she found out ED ROS GENERAL - Review of Systems Review Of Systems: ROS reveals no pertinent complaints other than HPI. ED EXAM, GENERAL - Physical Exam Exam: See Below (See dictation) Course - Vital Signs Last Recorded V/S: Last Vital Signs Temp 36.4 C 04/16/19 00:05 Pulse 63 04/16/19 00:05 Resp 16 04/16/19 00:05 BP 107/68 04/16/19 00:05 Pulse Ox 99 04/16/19 00:05 - Orders/Labs/Meds Orders: Active Orders 24 hr Category Date Time Status Sodium Chloride 0.9% [Saline Flush] Med 04/16/19 00:19 Active 10 ml FLUSH ASDIRECTED PRN Sodium Chloride 0.9% [Saline Flush] Med 04/16/19 00:19 Active 2.5 ml FLUSH ASDIRECTED PRN Saline Lock Insert [OM.PC] Stat Oth 04/16/19 00:19 Ordered Medication Orders Sodium Chloride (Saline Flush) 10 ml FLUSH ASDIRECTED PRN PRN Reason: Keep Vein Open Sodium Chloride (Saline Flush) 2.5 ml FLUSH ASDIRECTED PRN PRN Reason: Keep Vein Open Meds: Medications Generic Name Dose Route Start Last Admin Trade Name Antoinette PRN Reason Stop Dose Admin Sodium Chloride 10 ml 04/16/19 00:19 Saline Flush FLUSH ASDIRECTED PRN Keep Vein Open Sodium Chloride 2.5 ml 04/16/19 00:19 Saline Flush FLUSH ASDIRECTED PRN Keep Vein Open Discontinued Medications Generic Name Dose Route Start Last Admin Trade Name Antoinette PRN Reason Stop Dose Admin Diphenhydramine HCl 50 mg 04/16/19 00:19 04/16/19 00:31 Benadryl IVPUSH 04/16/19 00:20 50 mg ONETIME ONE Administration Sodium Chloride 1,000 mls @ 999 mls/hr 04/16/19 00:19 04/16/19 00:28 Normal Saline IV 04/16/19 01:19 999 mls/hr STAT ONE Administration Ketorolac Tromethamine 30 mg 04/16/19 00:19 04/16/19 00:30 Toradol IVPUSH 04/16/19 00:20 30 mg ONETIME ONE Administration Methylprednisolone Sodium Succinate 125 mg 04/16/19 00:19 04/16/19 00:33 Solu-Medrol IVPUSH 04/16/19 00:20 125 mg ONETIME ONE Administration Ondansetron HCl 4 mg 04/16/19 00:19 04/16/19 00:28 Zofran IVPUSH 04/16/19 00:20 4 mg ONETIME ONE Administration Departure - Departure Time of Disposition: 01:44 Disposition: Home, Self-Care 01 Condition: Good Clinical Impression: Headache Qualifiers: Headache type: unspecified Headache chronicity pattern: unspecified pattern Intractability: not intractable Qualified Code(s): R51 - Headache - Discharge Information Referrals: PCP,None [Primary Care Provider] - Forms: ED Department Discharge Additional Instructions: The following information is given to patients seen in the emergency department who are being discharged to home. This information is to outline your options for follow-up care. We provide all patients seen in our emergency department with a follow-up referral. The need for follow-up, as well as the timing and circumstances, are variable depending upon the specifics of your emergency department visit. If you don't have a primary care physician on staff, we will provide you with a referral. We always advise you to contact your personal physician following an emergency department visit to inform them of the circumstance of the visit and for follow-up with them and/or the need for any referrals to a consulting specialist. The emergency department will also refer you to a specialist when appropriate. This referral assures that you have the opportunity for followup care with a specialist. All of these measure are taken in an effort to provide you with optimal care, which includes your followup. Under all circumstances we always encourage you to contact your private physician who remains a resource for coordinating your care. When calling for followup care, please make the office aware that this follow-up is from your recent emergency room visit. If for any reason you are refused follow-up, please contact the [facility] emergency department at and ask to speak to the emergency department charge nurse. [facility]- [facility] Medicine [facility] Family [address] [address] Push hydration and try to get as much rest as you can. Please take care to do good body positioning when you're resting sleeping and napping and feeding the baby to protect her neck and the musculature of your scalp. Use the ibuprofen that you have every 6 hours as needed for headache pain and he can also add Tylenol [id number] and use ice or heating pad to the areas of your neck and scalp for pain management. Please call and schedule a follow-up appointment with your provider in the clinic or ours for further evaluation of this headache if it recurs and return to ER as needed as discussed - My Orders Last 24 Hours: My Active Orders 04/16/19 00:19 Sodium Chloride 0.9% [Saline Flush] 10 ml FLUSH ASDIRECTED PRN Sodium Chloride 0.9% [Saline Flush] 2.5 ml FLUSH ASDIRECTED PRN Saline Lock Insert [OM.PC] Stat - Assessment/Plan Last 24 Hours: My Active Orders 04/16/19 00:19 Sodium Chloride 0.9% [Saline Flush] 10 ml FLUSH ASDIRECTED PRN Sodium Chloride 0.9% [Saline Flush] 2.5 ml FLUSH ASDIRECTED PRN Saline Lock Insert [OM.PC] Stat
[2019-04-16 01:55] VITALS: BP 101/49
== END 2019-04-16 01:55 | disposition home or self-care (01) ==
LOC: MW.ED 23:58
DX: O99.89 Other specified diseases and conditions complicating pregnancy, childbirth and the puerperium (principal); R51 Headache; Z88.0 Allergy status to penicillin; Z79.899 Other long term (current) drug therapy
CPT/HCPCS: 96361; 96374; 96375; 99283; J1200; J1885; J2405; J2930; J7040

== ENCOUNTER 2019-07-22 20:03 | Emergency (ER) | payer MEDICAID ==
--- NOTE | 2019-07-22 21:35 | EDM.PDOC ---
ED HPI GENERAL MEDICAL PROBLEM - General Chief Complaint: Abdominal Pain Stated Complaint: STOMACH PAIN Time Seen by Provider: 07/22/19 20:56 Source of Information: Reports: Patient History Limitations: Reports: No Limitations - History of Present Illness INITIAL COMMENTS - FREE TEXT/NARRATIVE: HISTORY AND PHYSICAL: History of present illness: Patient is a 24-year-old female presents to the ED today with concern of lower abdominal cramping and bleeding from her vagina that she feels is abnormal. Patient states she is approximately 4 months and has had 2 menstrual cycles since delivery. Patient states her last menstrual cycle was approximately 2 weeks ago. Patient states starting today she had a small amount of orange/red blood when she went to the bathroom and this happened on 2 occasions. Patient states along with this she's had some lower abdominal cramping and feels that this is unusual. Patient states she is in a monogamous relationship and has been for 5 years and is not concerned about sexual transmitted infection. Patient has a history of lupus but denies any other health history. Patient denies fever, chills, chest pain, shortness of breath, or cough. Denies headache, neck stiff ness, change in vision, syncope, or near syncope. Denies nausea, vomiting, abdominal pain, diarrhea, constipation, or dysuria. Has not noted any blood in urine or stool. Patient has been eating and drinking appropriately. Review of systems: As per history of present illness and below otherwise all systems reviewed and negative. Past medical history: As per history of present illness and as reviewed below otherwise noncontributory. Surgical history: As per history of present illness and as reviewed below otherwise noncontributory. Social history: See social history for further information Family history: As per history of present illness and as reviewed below otherwise noncontributory. Physical exam: General: Patient is alert, oriented, and in no acute distress. Patient sitting comfortably on exam table. HEENT: Atraumatic, normocephalic, pupils equal and reactive bilaterally, negative for conjunctival pallor or scleral icterus, mucous membranes moist, TMs normal bilaterally, throat clear, neck supple, nontender, trachea midline. No drooling or trismus noted. No meningeal signs. No hot potato voice noted. Lungs: Clear to auscultation, breath sounds equal bilaterally, chest nontender. Heart: S1S2, regular rate and rhythm without overt murmur Abdomen: Soft, nondistended, nontender. Negative for masses or hepatosplenomegaly. Negative for costovertebral tenderness. Pelvis: Stable nontender. Genitourinary: External genitalia grossly unremarkable. There is a small amount of white discharge in the vaginal vault. Patient does have severe pain with cervical motion tenderness and positive chandelier sign. Uterus is approximately 6-7 weeks in size and nontender. Rectal: Deferred. Skin: Intact, warm, dry. No lesions or rashes noted. Extremities: Atraumatic, negative for cords or calf pain. Neurovascular unremarkable. Neuro: Awake, alert, oriented. Cranial nerves II through XII unremarkable. Cerebellum unremarkable. Motor and sensory unremarkable throughout. Exam nonfocal. Notes: Discussed the importance for follow-up with an THRESHING OPERATOR women's health provider. Voices understanding and is agreeable to plan of care. Denies any further questions or concerns at this time. Diagnostics: CBC, CMP, UA, lipase, urine hCG, transvaginal ultrasound non-OB, gonorrhea and chlamydia, affirm, vaginal culture Therapeutics: Rocephin (patient has taken safely in the past), Prescription: Doxycycline, metronidazole Impression: Pelvic inflammatory disease Plan: 1. Take medication as prescribed. You can alternate ibuprofen and Tylenol as directed for pain and discomfort. 2. Follow-up with your primary care provider and your THRESHING OPERATOR women's health provider as discussed. Return to the ED as needed and as discussed. Definitive disposition and diagnosis as appropriate pending reevaluation and review of above. Abdomen Pain Score (Numeric/FACES): 3 - Related Data Allergies Allergy/AdvReac Type Severity Reaction Status Date / Time Penicillins Allergy Anaphylactic Verified 04/16/19 00:12 Shock Home Meds: Home Meds Vits #93/Iron Fum/FA [ Formula Tablet] 1 tab PO DAILY 07/22/18 [History] Past Medical History - Past Health History Medical/Surgical History: Denies Medical/Surgical History HEENT History: Reports: None Cardiovascular History: Reports: None Respiratory History: Reports: None Gastrointestinal History: Reports: Cholelithiasis, Other (See Below) Other Gastrointestinal History: heartburn during Genitourinary History: Reports: None 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: , 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 Musculoskeletal History: Reports: Fibromyalgia Other Musculoskeletal History: fibromyalgia Neurological History: Reports: Other (See Below) Other Neuro History: hx of motion sickness Psychiatric History: Reports: None Endocrine/Metabolic History: Reports: None, Obesity/BMI 30+ Hematologic History: Reports: None Immunologic History: Reports: Other (See Below) Other Immunologic History: Lupus Oncologic (Cancer) History: Reports: None Dermatologic History: Reports: Other (See Below) Other Dermatologic History: raynauds to hands and feet - Infectious Disease History Infectious Disease History: Reports: None - Past Surgical History Head Surgeries/Procedures: Reports: None HEENT Surgical History: Reports: Adenoidectomy, Myringotomy w Tube(s), Tonsillectomy Cardiovascular Surgical History: Reports: None GI Surgical History: Reports: Cholecystectomy Social & Family History - Family History Family Medical History: Unobtainable - Caffeine Use Caffeine Use: Reports: Coffee Caffeine Use Comment: stopped when she found out ED ROS GENERAL - Review of Systems Review Of Systems: ROS reveals no pertinent complaints other than HPI. ED EXAM, GENERAL - Physical Exam Exam: See Below (See dictation) Course - Vital Signs Last Recorded V/S: Last Vital Signs Temp 35.9 C 07/22/19 21:54 Pulse 61 07/22/19 21:54 Resp 16 07/22/19 21:54 BP 108/70 07/22/19 21:54 Pulse Ox 100 07/22/19 21:54 - Orders/Labs/Meds Orders: Active Orders 24 hr Category Date Time Status CHLAMYDIA AND GONORRHEA BY TMA Stat Lab 07/22/19 22:34 Received CULTURE GENITAL [RM] Stat Lab 07/22/19 22:48 Received Labs: Laboratory Tests 07/22/19 07/22/19 07/22/19 Range/Units 20:45 20:45 22:07 WBC 4.96 (4.0-11.0) K/uL RBC 4.52 (4.30-5.90) M/uL Hgb 13.2 (12.0-16.0) g/dL Hct 40.2 (36.0-46.0) % MCV 88.9 (80.0-98.0) fL MCH 29.2 (27.0-32.0) pg MCHC 32.8 (31.0-37.0) g/dL RDW Std Deviation 43.9 (28.0-62.0) fl RDW Coeff of Codey 13 (11.0-15.0) % Plt Count 248 (150-400) K/uL MPV 10.60 (7.40-12.00) fL Neut % (Auto) 58.3 (48.0-80.0) % Lymph % (Auto) 27.2 (16.0-40.0) % Glynn % (Auto) 10.5 (0.0-15.0) % Eos % (Auto) 3.2 (0.0-7.0) % Baso % (Auto) 0.8 (0.0-1.5) % Neut # (Auto) 2.9 (1.4-5.7) K/uL Lymph # (Auto) 1.4 (0.6-2.4) K/uL Glynn # (Auto) 0.5 (0.0-0.8) K/uL Eos # (Auto) 0.2 (0.0-0.7) K/uL Baso # (Auto) 0.0 (0.0-0.1) K/uL Nucleated RBC % 0.0 /100WBC Nucleated RBCs # 0 K/uL Sodium (136-145) mmol/L Potassium (3.5-5.1) mmol/L Chloride (98-107) mmol/L Carbon Dioxide (21.0-32.0) mmol/L BUN (7.0-18.0) mg/dL Creatinine (0.6-1.0) mg/dL Est Cr Clr Drug Dosing mL/min Estimated GFR (MDRD) ml/min Glucose (74-106) mg/dL Calcium (8.5-10.1) mg/dL Total Bilirubin (0.2-1.0) mg/dL AST (15-37) IU/L ALT (14-63) IU/L Alkaline Phosphatase (46-116) U/L Total Protein (6.4-8.2) g/dL Albumin (3.4-5.0) g/dL Globulin (2.6-4.0) g/dL Albumin/Globulin Ratio (0.9-1.6) Lipase (73-393) U/L Urine Color YELLOW Urine Appearance CLEAR Urine pH 6.0 (5.0-8.0) Ur Specific [place] <= 1.005 (1.001-1.035) Urine Protein NEGATIVE (NEGATIVE) mg/dL Urine Glucose (UA) NEGATIVE (NEGATIVE) mg/dL Urine Ketones NEGATIVE (NEGATIVE) mg/dL Urine Occult Blood NEGATIVE (NEGATIVE) Urine Nitrite NEGATIVE (NEGATIVE) Urine Bilirubin NEGATIVE (NEGATIVE) Urine Urobilinogen 0.2 (<2.0) EU/dL Ur Leukocyte Esterase NEGATIVE (NEGATIVE) Urine HCG, Qual NEGATIVE (NEGATIVE) April species DNA (NEGATIVE) Gardnerella DNA Probe (NEGATIVE) Trichomonas DNA Probe (NEGATIVE) 07/22/19 07/22/19 Range/Units 22:07 22:34 WBC (4.0-11.0) K/uL RBC (4.30-5.90) M/uL Hgb (12.0-16.0) g/dL Hct (36.0-46.0) % MCV (80.0-98.0) fL MCH (27.0-32.0) pg MCHC (31.0-37.0) g/dL RDW Std Deviation (28.0-62.0) fl RDW Coeff of Codey (11.0-15.0) % Plt Count (150-400) K/uL MPV (7.40-12.00) fL Neut % (Auto) (48.0-80.0) % Lymph % (Auto) (16.0-40.0) % Glynn % (Auto) (0.0-15.0) % Eos % (Auto) (0.0-7.0) % Baso % (Auto) (0.0-1.5) % Neut # (Auto) (1.4-5.7) K/uL Lymph # (Auto) (0.6-2.4) K/uL Glynn # (Auto) (0.0-0.8) K/uL Eos # (Auto) (0.0-0.7) K/uL Baso # (Auto) (0.0-0.1) K/uL Nucleated RBC % /100WBC Nucleated RBCs # K/uL Sodium 141 (136-145) mmol/L Potassium 4.3 (3.5-5.1) mmol/L Chloride 105 (98-107) mmol/L Carbon Dioxide 27.6 (21.0-32.0) mmol/L BUN 16 (7.0-18.0) mg/dL Creatinine 1.2 H (0.6-1.0) mg/dL Est Cr Clr Drug Dosing 74.18 mL/min Estimated GFR (MDRD) 56.2 ml/min Glucose 96 (74-106) mg/dL Calcium 9.1 (8.5-10.1) mg/dL Total Bilirubin 0.3 (0.2-1.0) mg/dL AST 16 (15-37) IU/L ALT 15 (14-63) IU/L Alkaline Phosphatase 46 (46-116) U/L Total Protein 7.2 (6.4-8.2) g/dL Albumin 4.0 (3.4-5.0) g/dL Globulin 3.2 (2.6-4.0) g/dL Albumin/Globulin Ratio 1.3 (0.9-1.6) Lipase 123 (73-393) U/L Urine Color Urine Appearance Urine pH (5.0-8.0) Ur Specific [place] (1.001-1.035) Urine Protein (NEGATIVE) mg/dL Urine Glucose (UA) (NEGATIVE) mg/dL Urine Ketones (NEGATIVE) mg/dL Urine Occult Blood (NEGATIVE) Urine Nitrite (NEGATIVE) Urine Bilirubin (NEGATIVE) Urine Urobilinogen (<2.0) EU/dL Ur Leukocyte Esterase (NEGATIVE) Urine HCG, Qual (NEGATIVE) April species DNA NEGATIVE (NEGATIVE) Gardnerella DNA Probe NEGATIVE (NEGATIVE) Trichomonas DNA Probe NEGATIVE (NEGATIVE) Meds: Medications Discontinued Medications Generic Name Dose Route Start Last Admin Trade Name Freq PRN Reason Stop Dose Admin Ceftriaxone Sodium 250 mg/ 1 mls @ 1 mls/sec 07/22/19 22:41 07/22/19 23:11 Lidocaine HCl IM 07/22/19 22:42 1 mls/sec ONETIME ONE Administration Departure - Departure Time of Disposition: 00:00 Disposition: Home, Self-Care 01 Clinical Impression: Pelvic inflammatory disease (PID) - Discharge Information Instructions: Pelvic Inflammatory Disease, [id number] Referrals: PCP,None [Primary Care Provider] - Forms: ED Department Discharge Additional Instructions: The following information is given to patients seen in the emergency department who are being discharged to home. This information is to outline your options for follow-up care. We provide all patients seen in our emergency department with a follow-up referral. The need for follow-up, as well as the timing and circumstances, are variable depending upon the specifics of your emergency department visit. If you don't have a primary care physician on staff, we will provide you with a referral. We always advise you to contact your personal physician following an emergency department visit to inform them of the circumstance of the visit and for follow-up with them and/or the need for any referrals to a consulting specialist. The emergency department will also refer you to a specialist when appropriate. This referral assures that you have the opportunity for follow-up care with a specialist. All of these measure are taken in an effort to provide you with optimal care, which includes your follow-up. Under all circumstances we always encourage you to contact your private physician who remains a resource for coordinating your care. When calling for follow-up care, please make the office aware that this follow-up is from your recent emergency room visit. If for any reason you are refused follow-up, please contact the [facility] Emergency Department at and asked to speak to the emergency department charge nurse. [facility] [address] [place] [address] [address] [facility] [address] [place] [address] 1. Take medication as prescribed. You can alternate ibuprofen and Tylenol as directed for pain and discomfort. 2. Follow-up with your primary care provider and your THRESHING OPERATOR women's health provider as discussed. Return to the ED as needed and as discussed. - My Orders Last 24 Hours: My Active Orders 07/22/19 22:34 CHLAMYDIA AND GONORRHEA BY TMA Stat 07/22/19 22:48 CULTURE GENITAL [RM] Stat - Assessment/Plan Last 24 Hours: My Active Orders 07/22/19 22:34 CHLAMYDIA AND GONORRHEA BY TMA Stat 07/22/19 22:48 CULTURE GENITAL [RM] Stat
--- NOTE | 2019-07-22 22:29 | US ---
INDICATION: PELVIC PAIN AND ABNORMAL BLEEDING Dictated by: Jai Nayak MD @ 07/22/2019 22:26:48 (Electronically Signed)
[2019-07-22 22:34] LABS: CARBON DIOXIDE,CO2 27.6 mmol/L (21.0-32.0); POTASSIUM,K 4.3 mmol/L (3.5-5.1)
[2019-07-22] MEDS ORDERED: cefTRIAXone 250 MG in Lidocaine 1% 1 ML IM ONE (22:41)
[2019-07-23 03:50] VITALS: BP 100/68; PULSE 69
== END 2019-07-22 23:51 | disposition home or self-care (01) ==
LOC: MW.ED 20:03
DX: N73.9 Female pelvic inflammatory disease, unspecified (principal); E66.9 Obesity, unspecified; Z88.0 Allergy status to penicillin; Z98.890 Other specified postprocedural states; Z90.49 Acquired absence of other specified parts of digestive tract; Z68.24 Body mass index [BMI] 24.0-24.9, adult
CPT/HCPCS: 36415; 76830; 80053; 81003; 81025; 83690; 85025; 87070; 87480; 87491; 87510; 87591; 87660; 96372; 99284; J0696; J2001; 99283

== ENCOUNTER 2019-10-25 21:12 | Emergency (ER) | payer MEDICAID ==
--- NOTE | 2019-10-25 22:19 | EDM.PDOC ---
ED HPI GENERAL MEDICAL PROBLEM - General Chief Complaint: Abdominal Pain Stated Complaint: ABDOMINAL PAIN Time Seen by Provider: 10/25/19 22:18 Source of Information: Reports: Patient History Limitations: Reports: No Limitations - History of Present Illness INITIAL COMMENTS - FREE TEXT/NARRATIVE: HISTORY AND PHYSICAL: History of present illness: Patient is a 24-year-old female presents to ED with complaint of abdominal pain. Patient states that pain started after she was doing yoga this afternoon. She states she has been nauseous as well. She denies fevers, chills, vomiting, diarrhea, cough, shortness of breath. Review of systems: As per history of present illness and below otherwise all systems reviewed and negative. Past medical history: As per history of present illness and as reviewed below otherwise noncontributory. Surgical history: As per history of present illness and as reviewed below otherwise noncontributory. Social history: No reported history of drug or alcohol abuse. Family history: As per history of present illness and as reviewed below otherwise noncontributory. Physical exam: General: Patient sitting comfortably in no acute distress and nontoxic appearing HEENT: Atraumatic, normocephalic, pupils reactive, negative for conjunctival pallor or scleral icterus, mucous membranes moist, throat clear, neck supple, nontender, trachea midline. No meningeal signs. Lungs: Clear to auscultation, breath sounds equal bilaterally, chest nontender. Heart: S1S2, regular, negative for clicks, rubs, or overt murmur. Abdomen: Soft, nondistended, nontender. Negative for masses or hepatosplenomegaly. Negative for costovertebral tenderness. No rigidity, rebound , guarding. Pelvis: Stable nontender. Genitourinary: Deferred. Rectal: Deferred. Extremities: Atraumatic, negative for cords or calf pain. Neurovascular unremarkable. Neuro: Awake, alert, oriented. Cranial nerves II through XII unremarkable. Cerebellum unremarkable. Motor and sensory unremarkable throughout. Exam nonfocal. Notes: Diagnostics: UA, urine hcg Therapeutics: [] Prescriptions: Macrobid Impression: UTI Definitive disposition and diagnosis as appropriate pending reevaluation and review of above. SONYA abdomen Pain Score (Numeric/FACES): 6 - Related Data Allergies Allergy/AdvReac Type Severity Reaction Status Date / Time Penicillins Allergy Anaphylactic Verified 10/25/19 21:31 Shock Home Meds: Home Meds Vits #93/Iron Fum/FA [ Formula Tablet] 1 tab PO DAILY 07/22/18 [History] Ascorbic Acid/Collagen Hydr [Collagen Plus Vit C] 1 tab PO DAILY 10/25/19 [ History] Nitrofurantoin Monohyd/M-Cryst [Macrobid 100 mg Capsule] 100 mg PO BID 7 Days # 14 capsule 10/25/19 [Rx] Past Medical History - Past Health History Medical/Surgical History: Denies Medical/Surgical History HEENT History: Reports: None Cardiovascular History: Reports: None Respiratory History: Reports: None Gastrointestinal History: Reports: Cholelithiasis, Other (See Below) Other Gastrointestinal History: heartburn during Genitourinary History: Reports: None 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: , 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 Musculoskeletal History: Reports: Fibromyalgia Other Musculoskeletal History: fibromyalgia Neurological History: Reports: Other (See Below) Other Neuro History: hx of motion sickness Psychiatric History: Reports: None Endocrine/Metabolic History: Reports: None, Obesity/BMI 30+ Hematologic History: Reports: None Immunologic History: Reports: Other (See Below) Other Immunologic History: Lupus Oncologic (Cancer) History: Reports: None Dermatologic History: Reports: Other (See Below) Other Dermatologic History: raynauds to hands and feet - Infectious Disease History Infectious Disease History: Reports: Chicken Pox - Past Surgical History Head Surgeries/Procedures: Reports: None HEENT Surgical History: Reports: Adenoidectomy, Myringotomy w Tube(s), Tonsillectomy Cardiovascular Surgical History: Reports: None GI Surgical History: Reports: Cholecystectomy Social & Family History - Family History Family Medical History: Unobtainable - Tobacco Use Smoking Status *Q: Never Smoker - Caffeine Use Caffeine Use: Reports: Coffee Caffeine Use Comment: stopped when she found out - Recreational Drug Use Recreational Drug Use: No ED ROS GENERAL - Review of Systems Review Of Systems: Comprehensive ROS is negative, except as noted in HPI. ED EXAM, RENAL/ - Physical Exam Exam: See Below (see dictation) Course - Vital Signs Last Recorded V/S: Last Vital Signs Temp 97.2 F 10/25/19 21:28 Pulse 67 10/25/19 21:28 Resp 18 10/25/19 21:28 BP 99/71 10/25/19 21:28 Pulse Ox 99 10/25/19 21:28 - Orders/Labs/Meds Orders: Active Orders 24 hr Category Date Time Status CULTURE URINE [RM] Stat Lab 10/25/19 21:44 Received Labs: Laboratory Tests 10/25/19 10/25/19 Range/Units 21:44 21:44 Urine Color YELLOW Urine Appearance SLT CLOUDY Urine pH 6.5 (5.0-8.0) Ur Specific [place] 1.020 (1.001-1.035) Urine Protein NEGATIVE (NEGATIVE) mg/dL Urine Glucose (UA) NEGATIVE (NEGATIVE) mg/dL Urine Ketones NEGATIVE (NEGATIVE) mg/dL Urine Occult Blood NEGATIVE (NEGATIVE) Urine Nitrite NEGATIVE (NEGATIVE) Urine Bilirubin NEGATIVE (NEGATIVE) Urine Urobilinogen 0.2 (<2.0) EU/dL Ur Leukocyte Esterase SMALL H (NEGATIVE) Urine RBC 1-2 (0-2/HPF) Urine WBC 5-10 (0-5/HPF) Ur Epithelial Cells FEW (NONE-FEW) Urine Bacteria FEW (NEGATIVE) Urine HCG, Qual NEGATIVE (NEGATIVE) Departure - Departure Time of Disposition: 22:18 Disposition: Home, Self-Care 01 Condition: Good Clinical Impression: UTI (urinary tract infection) - Discharge Information Prescriptions: Nitrofurantoin Monohyd/M-Cryst [Macrobid 100 mg Capsule] 100 mg PO BID 7 Days # 14 capsule Referrals: PCP,None [Primary Care Provider] - Forms: ED Department Discharge Additional Instructions: The following information is given to patients seen in the emergency department who are being discharged to home. This information is to outline your options for follow-up care. We provide all patients seen in our emergency department with a follow-up referral. The need for follow-up, as well as the timing and circumstances, are variable depending upon the specifics of your emergency department visit. If you don't have a primary care physician on staff, we will provide you with a referral. We always advise you to contact your personal physician following an emergency department visit to inform them of the circumstance of the visit and for follow-up with them and/or the need for any referrals to a consulting specialist. The emergency department will also refer you to a specialist when appropriate. This referral assures that you have the opportunity for follow-up care with a specialist. All of these measure are taken in an effort to provide you with optimal care, which includes your follow-up. Under all circumstances we always encourage you to contact your private physician who remains a resource for coordinating your care. When calling for follow-up care, please make the office aware that this follow-up is from your recent emergency room visit. If for any reason you are refused follow-up, please contact the [facility] Emergency Department at and asked to speak to the emergency department charge nurse. [facility] [address] [place] [id number] [facility] [address] [place] [id number] Drink plenty of fluids and take antibiotic as directed. Follow up with primary care provider Return to ED as needed as discussed Sepsis Event Note - Evaluation Sepsis Screening Result: No Definite Risk - Focused Exam Vital Signs: Vital Signs Temp Pulse Resp BP Pulse Ox 10/25/19 21:28 97.2 F 67 18 99/71 99 Date Exam was Performed: 10/25/19 Time Exam was Performed: :19
[2019-10-25 22:55] VITALS: BP 99/71; PULSE 67
== END 2019-10-25 22:31 | disposition home or self-care (01) ==
LOC: MW.ED 21:12
DX: N39.0 Urinary tract infection, site not specified (principal); Z88.0 Allergy status to penicillin
CPT/HCPCS: 81001; 81025; 87086; 99284

== ENCOUNTER 2020-01-04 06:04 | Emergency (ER) | payer SELFPAY ==
--- NOTE | 2020-01-04 06:19 | EDM.PDOC ---
ED HPI GENERAL MEDICAL PROBLEM - General Chief Complaint: ENT Problem Stated Complaint: LEFT EAR PAIN, SORE THROAT, COUGH, CONGESTION Time Seen by Provider: 01/04/20 06:17 History Limitations: Reports: No Limitations - History of Present Illness INITIAL COMMENTS - FREE TEXT/NARRATIVE: CC left ear pain HPI: This is a 4-year-old female whose family members have the flu who is been coughing for a week and is developed severe left ear pain. Patient has had a subjective fever but no vomiting or diarrhea no sore throat PMHX/PSHX: Negative Social History: Negative for tobacco, negative for alcohol, negative for street drugs or marijuana Family history: Hypertension ROS: see chart PE: VS afebrile vital signs stable General: No apparent distress Head: Atraumatic normocephalic no lumps bumps or bruises Eyes: EOMI PERRLA Ears: TMs intact no hemotympanum left TM is inflamed but no mastoid tenderness or bogginess Nose: No epistaxis nares patent no septal wall hematoma Throat: No pharyngeal erythema or exudate no tonsillar enlargement Neck: Supple, no cervical lymphadenopathy Chest wall: No point tenderness Heart: Regular rate and rhythm without murmur gallop or rub Lungs: Clear to auscultation and percussion without rales rhonchi or wheeze Abdomen: Soft nontender nondistended without guarding rigidity or rebound Neck: No spinal point tenderness full range of motion in all 6 directions Back: No spinal paraspinal or CVA tenderness Extremities: full rom through out. no effusions skin: Warm dry intact no rashes neurologic: cranial nerves II through XII intact. No focal motor or sensory deficits noted MDM: Differential diagnosis: Otitis media ED course: I suspect a superinfection. Patient probably has the flu but has been sick for over a week so there is no point in testing or starting her on's Tamiflu. That left TM does look inflamed so I will start her on a course of antibiotics Diagnosis: Milam media upper respiratory illness Disposition: Home L ear Pain Score (Numeric/FACES): 10 - Related Data Allergies Allergy/AdvReac Type Severity Reaction Status Date / Time Penicillins Allergy Anaphylactic Verified 10/25/19 21:31 Shock Home Meds: Home Meds Vits #93/Iron Fum/FA [ Formula Tablet] 1 tab PO DAILY 09/18/18 [History] Ascorbic Acid/Collagen Hydr [Collagen Plus Vit C] 1 tab PO DAILY 10/25/19 [ History] Nitrofurantoin Monohyd/M-Cryst [Macrobid 100 mg Capsule] 100 mg PO BID 7 Days # 14 capsule 10/25/19 [Rx] Albuterol Sulfate 0.63 mg IH Q3HR PRN #1 ml 01/04/20 [Rx] Azithromycin 250 mg PO DAILY 5 Days #6 tablet 01/04/20 [Rx] Ibuprofen 800 mg PO TID #20 tablet 01/04/20 [Rx] Past Medical History - Past Health History Medical/Surgical History: Denies Medical/Surgical History HEENT History: Reports: None Cardiovascular History: Reports: None Respiratory History: Reports: None Gastrointestinal History: Reports: Cholelithiasis, Other (See Below) Other Gastrointestinal History: heartburn during Genitourinary History: Reports: None 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: , 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 Musculoskeletal History: Reports: Fibromyalgia Other Musculoskeletal History: fibromyalgia Neurological History: Reports: Other (See Below) Other Neuro History: hx of motion sickness Psychiatric History: Reports: None Endocrine/Metabolic History: Reports: None, Obesity/BMI 30+ Hematologic History: Reports: None Immunologic History: Reports: Other (See Below) Other Immunologic History: Lupus Oncologic (Cancer) History: Reports: None Dermatologic History: Reports: Other (See Below) Other Dermatologic History: raynauds to hands and feet - Infectious Disease History Infectious Disease History: Reports: Chicken Pox - Past Surgical History Head Surgeries/Procedures: Reports: None HEENT Surgical History: Reports: Adenoidectomy, Myringotomy w Tube(s), Tonsillectomy Cardiovascular Surgical History: Reports: None GI Surgical History: Reports: Cholecystectomy Social & Family History - Family History Family Medical History: Unobtainable - Caffeine Use Caffeine Use: Reports: Coffee Caffeine Use Comment: stopped when she found out ED ROS ENT - Review of Systems Review Of Systems: Comprehensive ROS is negative, except as noted in HPI. ED EXAM, ENT - Physical Exam Exam: See Below Reason Not Obtained: See my H&P Course - Vital Signs Last Recorded V/S: Last Vital Signs Temp 36.1 C 01/04/20 06:13 Pulse 75 01/04/20 06:13 Resp 18 01/04/20 06:13 BP 126/96 H 01/04/20 06:13 Pulse Ox 100 01/04/20 06:13 Departure - Departure Time of Disposition: 06:27 Disposition: Home, Self-Care 01 Clinical Impression: Otitis media Qualifiers: Otitis media type: unspecified Chronicity: acute Qualified Code(s): H66.90 - Otitis media, unspecified, unspecified ear - Discharge Information Prescriptions: Albuterol Sulfate 0.63 mg IH Q3HR PRN #1 ml PRN Reason: Cough Azithromycin 250 mg PO DAILY 5 Days #6 tablet Ibuprofen 800 mg PO TID #20 tablet Referrals: PCP,None [Primary Care Provider] - Forms: ED Department Discharge Sepsis Event Note - Focused Exam Vital Signs: Vital Signs Temp Pulse Resp BP Pulse Ox 01/04/20 06:13 36.1 C 75 18 126/96 H 100 Date Exam was Performed: 01/04/20 Time Exam was Performed: 06:27
[2020-01-04 06:52] VITALS: BP 120/78; PULSE 88
== END 2020-01-04 06:46 | disposition home or self-care (01) ==
LOC: MW.ED 06:04
DX: H66.92 Otitis media, unspecified, left ear (principal); J39.9 Disease of upper respiratory tract, unspecified; E66.9 Obesity, unspecified; Z68.21 Body mass index [BMI] 21.0-21.9, adult; Z88.0 Allergy status to penicillin; Z79.899 Other long term (current) drug therapy
CPT/HCPCS: 99283

== ENCOUNTER 2020-03-05 21:36 | Emergency (ER) | payer SELFPAY ==
--- NOTE | 2020-03-05 21:44 | EDM.PDOC ---
ED HPI GENERAL MEDICAL PROBLEM - General Chief Complaint: Upper Extremity Injury/Pain Stated Complaint: RIGHT THUMB INJURY Time Seen by Provider: 03/05/20 21:44 Source of Information: Reports: Patient History Limitations: Reports: No Limitations - History of Present Illness INITIAL COMMENTS - FREE TEXT/NARRATIVE: Patient is a 25-year-old female who is been having pain and swelling to her right thumb which started approximately a week ago and is gotten worse. Patient finds it painful to move the thumb. There is no indication of infection. Patient is not aware of any trauma has not had previously similar symptoms. She has no other complaints denies any other injuries. She is taking nothing for current symptoms. Duration: Week(s): (1) Location: Reports: Upper Extremity, Right Quality: Reports: Dull Severity: Moderate Improves with: Reports: None Worsens with: Reports: Movement Associated Symptoms: Reports: No Other Symptoms right thumb Pain Score (Numeric/FACES): 6 - Related Data Allergies Allergy/AdvReac Type Severity Reaction Status Date / Time Penicillins Allergy Anaphylactic Verified 03/05/20 21:44 Shock Home Meds: Home Meds Ascorbic Acid/Collagen Hydr [Collagen Plus Vit C] 1 tab PO DAILY 10/25/19 [ History] Albuterol Sulfate 0.63 mg IH Q3HR PRN #1 ml 01/04/20 [Rx] Past Medical History - Past Health History Medical/Surgical History: Denies Medical/Surgical History HEENT History: Reports: None Cardiovascular History: Reports: None Respiratory History: Reports: None Gastrointestinal History: Reports: Cholelithiasis, Other (See Below) Other Gastrointestinal History: heartburn during Genitourinary History: Reports: None 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: , 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 Musculoskeletal History: Reports: Fibromyalgia Other Musculoskeletal History: fibromyalgia Neurological History: Reports: Other (See Below) Other Neuro History: hx of motion sickness Psychiatric History: Reports: None Endocrine/Metabolic History: Reports: None, Obesity/BMI 30+ Hematologic History: Reports: None Immunologic History: Reports: Other (See Below) Other Immunologic History: Lupus Oncologic (Cancer) History: Reports: None Dermatologic History: Reports: Other (See Below) Other Dermatologic History: raynauds to hands and feet - Infectious Disease History Infectious Disease History: Reports: Chicken Pox - Past Surgical History Head Surgeries/Procedures: Reports: None HEENT Surgical History: Reports: Adenoidectomy, Myringotomy w Tube(s), Tonsillectomy Cardiovascular Surgical History: Reports: None GI Surgical History: Reports: Cholecystectomy Social & Family History - Family History Family Medical History: Unobtainable - Caffeine Use Caffeine Use: Reports: Coffee Caffeine Use Comment: stopped when she found out Review of Systems - Review of Systems Review Of Systems: Comprehensive ROS is negative, except as noted in HPI. ED EXAM, GENERAL - Physical Exam Exam: See Below Exam Limited By: No Limitations General Appearance: Alert, WD/WN Head: Atraumatic Neck: Normal Inspection, Supple Respiratory/Chest: No Respiratory Distress Extremities: Limited Range of Motion, Other (Right thumb is slightly swollen and is tender going down to the thenar eminence. Warmth or erythema. Patient has decreased range of motion. I see no ecchymosis or hematoma.) Neurological: Alert, Oriented Psychiatric: Normal Mood Skin Exam: Warm, Dry Lymphatic: No Adenopathy Course - Vital Signs Text/Narrative:: X-ray shows no sign of fracture. We are placing patient in aluminum foam splint. She is advised to use elevation of swollen and ibuprofen with meals. She is to follow-up with her PCP or orthopedic provider if symptoms are not improving. She may return to ER anytime if worse. Last Recorded V/S: Last Vital Signs Temp 36.6 C 03/05/20 21:45 Pulse 69 03/05/20 21:45 Resp 16 03/05/20 21:45 BP 120/76 03/05/20 21:45 Pulse Ox 98 03/05/20 21:45 - Orders/Labs/Meds Orders: Active Orders 24 hr Category Date Time Status Hand Comp Min 3V Rt [CR] Stat Exams 03/05/20 21:48 Taken Departure - Departure Time of Disposition: 22:09 Disposition: Home, Self-Care 01 Condition: Good Clinical Impression: Sprain of right thumb - Discharge Information Instructions: Finger Sprain, Adult, [id number] Forms: ED Department Discharge Additional Instructions: Ice and elevation of swollen. Splint as needed. Follow-up with PCP or orthopedic provider if not improving. Return to ER if worse. Care Plan Goals: The following information is given to patients seen in the emergency department who are being discharged to home. This information is to outline your options for follow-up care. We provide all patients seen in our emergency department with a follow-up referral. The need for follow-up, as well as the timing and circumstances, are variable depending upon the specifics of your emergency department visit. If you don't have a primary care physician on staff, we will provide you with a referral. We always advise you to contact your personal physician following an emergency department visit to inform them of the circumstance of the visit and for follow-up with them and/or the need for any referrals to a consulting specialist. The emergency department will also refer you to a specialist when appropriate. This referral assures that you have the opportunity for follow-up care with a specialist. All of these measure are taken in an effort to provide you with optimal care, which includes your follow-up. Under all circumstances we always encourage you to contact your private physician who remains a resource for coordinating your care. When calling for follow-up care, please make the office aware that this follow-up is from your recent emergency room visit. If for any reason you are refused follow-up, please contact the [facility] Emergency Department at and asked to speak to the emergency department charge nurse. Sepsis Event Note - Focused Exam Vital Signs: Vital Signs Temp Pulse Resp BP Pulse Ox 03/05/20 21:45 36.6 C 69 16 120/76 98 Date Exam was Performed: 03/05/20 Time Exam was Performed: 22:08 - My Orders Last 24 Hours: My Active Orders 03/05/20 21:48 Hand Comp Min 3V Rt [CR] Stat - Assessment/Plan Last 24 Hours: My Active Orders 03/05/20 21:48 Hand Comp Min 3V Rt [CR] Stat
[2020-03-05 22:22] VITALS: BP 117/65; PULSE 71
--- NOTE | 2020-03-05 22:36 | CR ---
INDICATION: Right thumb injury. TECHNIQUE: Three views right hand. FINDINGS: No acute fracture or dislocation in right hand including the thumb. Small rounded lucencies in a few carpal bones benign. Probable mild soft tissue swelling right thumb. Remainder negative. Dictated by Fran Farrar MD @ Mar 05 2020 10:34PM Signed by Dr. Fran Farrar @ Mar 05 2020 10:35PM
== END 2020-03-05 22:22 | disposition home or self-care (01) ==
LOC: MW.ED 21:36
DX: S63.601A Unspecified sprain of right thumb, initial encounter (principal); Z88.0 Allergy status to penicillin; X58.XXXA Exposure to other specified factors, initial encounter
CPT/HCPCS: 29130; 73130-26-RT; 73130-RT; 99282; 99283-25

== ENCOUNTER 2020-07-24 18:50 | Emergency (ER) | payer MEDICAID ==
[2020-07-24] MEDS ORDERED: Octyl 2-Cyanoacrylate 1 Tube TOP ONE (20:59)
--- NOTE | 2020-07-24 21:08 | EDM.PDOC ---
ED HPI GENERAL MEDICAL PROBLEM - General Chief Complaint: Laceration Stated Complaint: RIGHT PINKY LACERATION Time Seen by Provider: 07/24/20 20:48 Source of Information: Reports: Patient History Limitations: Reports: No Limitations - History of Present Illness INITIAL COMMENTS - FREE TEXT/NARRATIVE: History of present illness: [Patient is 25-year-old female who presents with laceration to the dorsal aspect of her right pinky. She states that she was throwing some trash out and there was a soup can that she had just opened and the top of the trash and it cut her pinky. Reports that her tetanus is up-to-date. Denies any other injuries or complaints. Held pressure to stop the bleeding and came in here to see if she needs stitches.] Review of systems: As per history of present illness and below otherwise all systems reviewed and negative. Past medical history: As per history of present illness and as reviewed below otherwise noncontributory. Surgical history: As per history of present illness and as reviewed below otherwise noncontributory. Social history: No reported history of drug or alcohol abuse. Family history: As per history of present illness and as reviewed below otherwise noncontributory. Physical exam: General: Awake, alert, no acute distress, A&O X3. HEENT: Atraumatic, normocephalic, pupils reactive, negative for conjunctival pallor or scleral icterus, mucous membranes moist, throat clear, neck supple, nontender, trachea midline. Lungs: Clear to auscultation, breath sounds equal bilaterally, chest nontender. Heart: RRR, normal S1S2, no JVD. Abdomen: Soft, nondistended, nontender. Negative for masses or hepatosplenomegaly. Negative for costovertebral tenderness. Pelvis: Stable nontender. Genitourinary: Deferred. Rectal: Deferred. Extremities: no edema, Neurovascular unremarkable. Skin: Vertical 2 cm laceration to the dorsal aspect of the right pinky, specifically over the PIP. Normal cap refill in the finger, neurovascular intact, not actively bleeding at this time. Neuro: Motor and sensory grossly intact throughout. Exam nonfocal. Diagnostics: [] Therapeutics: [] Impression: [] Plan: [] Definitive disposition and diagnosis as appropriate pending reevaluation and review of above. Left Finger-Little Pain Score (Numeric/FACES): 5 - Related Data Allergies Allergy/AdvReac Type Severity Reaction Status Date / Time Penicillins Allergy Anaphylactic Verified 07/24/20 19:59 Shock Home Meds: Home Meds Ascorbic Acid/Collagen Hydr [Collagen Plus Vit C] 1 tab PO DAILY 10/25/19 [History] Albuterol Sulfate 0.63 mg IH Q3HR PRN #1 ml 01/04/20 [Rx] Past Medical History - Past Health History Medical/Surgical History: Denies Medical/Surgical History HEENT History: Reports: None Cardiovascular History: Reports: None Respiratory History: Reports: None Gastrointestinal History: Reports: Cholelithiasis, Other (See Below) Other Gastrointestinal History: heartburn during Genitourinary History: Reports: None 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: , 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 Musculoskeletal History: Reports: Fibromyalgia Other Musculoskeletal History: fibromyalgia Neurological History: Reports: Other (See Below) Other Neuro History: hx of motion sickness Psychiatric History: Reports: None Endocrine/Metabolic History: Reports: None, Obesity/BMI 30+ Hematologic History: Reports: None Immunologic History: Reports: Other (See Below) Other Immunologic History: Lupus Oncologic (Cancer) History: Reports: None Dermatologic History: Reports: Other (See Below) Other Dermatologic History: raynauds to hands and feet - Infectious Disease History Infectious Disease History: Reports: Chicken Pox - Past Surgical History Head Surgeries/Procedures: Reports: None HEENT Surgical History: Reports: Adenoidectomy, Myringotomy w Tube(s), Tons illectomy Cardiovascular Surgical History: Reports: None GI Surgical History: Reports: Cholecystectomy Social & Family History - Family History Family Medical History: Unobtainable - Caffeine Use Caffeine Use: Reports: Coffee Caffeine Use Comment: stopped when she found out ED ROS GENERAL - Review of Systems Review Of Systems: Comprehensive ROS is negative, except as noted in HPI. ED EXAM, SKIN/RASH Exam: See Below (see h and p) ED SKIN PROCEDURES - Laceration/Wound Repair Right Upper Digit - 5th (Baby) Appearance: Superficial Distal NVT: Neuro & Vascular Intact, No Tendon Injury Skin Prep: Chlorhexidine (Hibiciens), Saline Saline Irrigation (cc's): 500 Exploration/Debridement/Repair: Wound Explored, No Foreign Material Found Closed with: Dermabond Lac/Wound length In cm: 2 Tetanus Status Addressed: Yes Complications: No - Splinting Right 5th Digit Splint Site: alumifoam finger splint right 5th finger Pre-Procedure NV Status: Normal Post-Procedure NV Status: Normal Splint Material: Aluminum-Foam Applied & Form Fitted By: Provider Provider Post-Splint Application NV Check: NV Status Normal Complications: No Course - Vital Signs Text/Narrative:: Laceration repaired with Dermabond, finger placed in AlumaFoam splint, patient tolerated well, encouraged her to keep the splint on for a week while the finger heals. Tetanus was already up-to-date. Return precautions provided otherwise she was stable at discharge. Last Recorded V/S: Last Vital Signs Temp 36.7 C 07/24/20 19:57 Pulse 63 07/24/20 19:57 Resp 14 07/24/20 19:57 BP 111/67 07/24/20 19:57 Pulse Ox 97 07/24/20 19:57 - Orders/Labs/Meds Meds: Medications Discontinued Medications Generic Name Dose Route Start Last Admin Trade Name Freq PRN Reason Stop Dose Admin Octyl Cyanoacrylate 1 applic 07/24/20 20:59 07/24/20 21:03 Dermabond Advance TOP 07/24/20 21:00 1 applic ONETIME ONE Administration Departure - Departure Time of Disposition: 21:09 Disposition: Home, Self-Care 01 Condition: Good Clinical Impression: Finger laceration - Discharge Information Instructions: Laceration Care, Adult Referrals: Sushant Ramos MD [Primary Care Provider] - Forms: ED Department Discharge Additional Instructions: Follow-up with primary care doctor. Return to the ER with any new or worsening symptoms. The following information is given to patients seen in the emergency department who are being discharged to home. This information is to outline your options for follow-up care. We provide all patients seen in our emergency department with a follow-up referral. The need for follow-up, as well as the timing and circumstances, are variable depending upon the specifics of your emergency department visit. If you don't have a primary care physician on staff, we will provide you with a referral. We always advise you to contact your personal physician following an emergency department visit to inform them of the circumstance of the visit and for follow-up with them and/or the need for any referrals to a consulting specialist. The emergency department will also refer you to a specialist when appropriate. This referral assures that you have the opportunity for follow-up care with a specialist. All of these measure are taken in an effort to provide you with optimal care, which includes your follow-up. Under all circumstances we always encourage you to contact your private physic jeff who remains a resource for coordinating your care. When calling for follow- up care, please make the office aware that this follow-up is from your recent emergency room visit. If for any reason you are refused follow-up, please contact the [facility] Emergency Department at and asked to speak to the emergency department charge nurse. Sepsis Event Note (ED) - Evaluation Sepsis Screening Result: No Definite Risk - Focused Exam Vital Signs: Vital Signs Temp Pulse Resp BP Pulse Ox 07/24/20 19:57 36.7 C 63 14 111/67 97
[2020-07-25 00:06] VITALS: BP 100/60; PULSE 62
== END 2020-07-24 21:35 | disposition home or self-care (01) ==
LOC: MW.ED 18:50
DX: S61.216A Laceration without foreign body of right little finger without damage to nail, initial encounter (principal); Z88.0 Allergy status to penicillin; E66.9 Obesity, unspecified; Z68.22 Body mass index [BMI] 22.0-22.9, adult; W26.8XXA Contact with other sharp object(s), not elsewhere classified, initial encounter
CPT/HCPCS: 12001; 99282; A9270

== ENCOUNTER 2020-09-09 11:04 | Emergency (ER) | payer SELFPAY ==
[2020-09-09] MEDS ORDERED: Sodium Chloride 0.9% 2.5 ML Syringe FLUSH PRN (13:17)
[2020-09-09] MEDS ORDERED: Sodium Chloride 0.9% 10 ML Syringe FLUSH PRN (13:17)
[2020-09-09] MEDS ORDERED: Metoclopramide 10 MG/2 ML SDV IVPUSH ONE (13:18)
[2020-09-09] MEDS ORDERED: diphenhydrAMINE 50 MG/ML SDV IVPUSH ONE (13:18)
[2020-09-09] MEDS ORDERED: Sodium Chloride 0.9% 1,000 ML IV ONE (13:18)
[2020-09-09] MEDS ORDERED: Ketorolac 15 MG/ML SDV IVPUSH ONE (13:18)
--- NOTE | 2020-09-09 13:22 | EDM.PDOC ---
ED HPI GENERAL MEDICAL PROBLEM - General Chief Complaint: Headache Stated Complaint: HEADACHE DIZZY NECK PAIN Time Seen by Provider: 09/09/20 11:16 Source of Information: Reports: Patient History Limitations: Reports: No Limitations - History of Present Illness INITIAL COMMENTS - FREE TEXT/NARRATIVE: History of present illness: [Patient is 25-year-old female with no significant past medical history who presents with headache. She states that she gets headaches almost every day, has never been worked up for it before, and that migraines run in her family. She denies any official diagnosis of migraine. She says she takes Aleve as needed but it has not only helped with the headache. Symptoms are worsened with bright lights, certain positions, associated with nausea, denies vomiting, denies fever. Also associated with some lightheadedness and dizziness. Denies chest pain or shortness of breath. Denies neck stiffness. Denies rash. Denies any known sick contacts. Denies having seen a neurologist or had any kind of work-up before related to these headaches.] Review of systems: As per history of present illness and below otherwise all systems reviewed and negative. Past medical history: As per history of present illness and as reviewed below otherwise noncontributory. Surgical history: As per history of present illness and as reviewed below otherwise noncontributory. Social history: No reported history of drug or alcohol abuse. Family history: As per history of present illness and as reviewed below otherwise noncontributory. Physical exam: General: Awake, alert, no acute distress, A&O X3. HEENT: Atraumatic, normocephalic, pupils reactive, negative for conjunctival pallor or scleral icterus, mucous membranes moist, throat clear, neck supple, nontender, trachea midline. Lungs: Clear to auscultation, breath sounds equal bilaterally, chest nontender. Heart: RRR, normal S1S2, no JVD. Abdomen: Soft, nondistended, nontender. Negative for masses or hepatosplenomegaly. Negative for costovertebral tenderness. Pelvis: Stable nontender. Genitourinary: Deferred. Rectal: Deferred. Extremities: Atraumatic, no edema, Neurovascular unremarkable. Neuro: Motor and sensory grossly intact throughout. Exam nonfocal. Diagnostics: [] Therapeutics: [] Impression: [] Plan: [] Definitive disposition and diagnosis as appropriate pending reevaluation and review of above. headache Pain Score (Numeric/FACES): 8 - Related Data Allergies Allergy/AdvReac Type Severity Reaction Status Date / Time Penicillins Allergy Anaphylactic Verified 09/09/20 12:51 Shock Home Meds: Home Meds Ascorbic Acid/Collagen Hydr [Collagen Plus Vit C] 1 tab PO DAILY 10/25/19 [History] Past Medical History - Past Health History Medical/Surgical History: Denies Medical/Surgical History HEENT History: Reports: None Cardiovascular History: Reports: None Respiratory History: Reports: None Gastrointestinal History: Reports: Cholelithiasis, Other (See Below) Other Gastrointestinal History: heartburn during Genitourinary History: Reports: None 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: , 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 Musculoskeletal History: Reports: Fibromyalgia Other Musculoskeletal History: fibromyalgia Neurological History: Reports: Other (See Below) Other Neuro History: hx of motion sickness Psychiatric History: Reports: None Endocrine/Metabolic History: Reports: None Hematologic History: Reports: None Immunologic History: Reports: Other (See Below) Other Immunologic History: Lupus Oncologic (Cancer) History: Reports: None Dermatologic History: Reports: Other (See Below) Other Dermatologic History: raynauds to hands and feet - Infectious Disease History Infectious Disease History: Reports: Chicken Pox - Past Surgical History Head Surgeries/Procedures: Reports: None HEENT Surgical History: Reports: Adenoidectomy, Myringotomy w Tube(s), Tonsillectomy Cardiovascular Surgical History: Reports: None GI Surgical History: Reports: Cholecystectomy Social & Family History - Family History Family Medical History: Unobtainable - Tobacco Use Tobacco Use Status *Q: Never Tobacco User - Caffeine Use Caffeine Use: Reports: Coffee Caffeine Use Comment: stopped when she found out - Recreational Drug Use Recreational Drug Use: No ED ROS GENERAL - Review of Systems Review Of Systems: Comprehensive ROS is negative, except as noted in HPI. - Physical Exam Exam: See Below (see h and p) Course - Vital Signs Text/Narrative:: On reassessment patient is feeling much better. Headache is resolved. CT scan of the brain is negative. Lab work is reassuring. I provided the patient with follow-up, told her to establish PCP care and that there were multiple medication options to help treat and control her headaches better. At this time I will defer to the outpatient setting for any chronic or long-term maintenance medications to help with her headaches. No neck stiffness, no meningismus, otherwise well-appearing and nontoxic at the time of discharge. Last Recorded V/S: Last Vital Signs Temp 36.3 C 09/09/20 12:51 Pulse 63 09/09/20 12:51 Resp 19 09/09/20 12:51 BP 109/79 09/09/20 12:51 Pulse Ox - Orders/Labs/Meds Orders: Active Orders 24 hr Category Date Time Status Sodium Chloride 0.9% [Saline Flush] Med 09/09/20 13:17 Active 10 ml FLUSH ASDIRECTED PRN Sodium Chloride 0.9% [Saline Flush] Med 09/09/20 13:17 Active 2.5 ml FLUSH ASDIRECTED PRN Saline Lock Insert [OM.PC] Stat Oth 09/09/20 13:17 Ordered Medication Orders Sodium Chloride (Saline Flush) 10 ml FLUSH ASDIRECTED PRN PRN Reason: Keep Vein Open Last Admin: 09/09/20 13:34 Dose: 10 ml Documented by: BRYON Sodium Chloride (Saline Flush) 2.5 ml FLUSH ASDIRECTED PRN PRN Reason: Keep Vein Open Last Admin: 09/09/20 13:34 Dose: 2.5 ml Documented by: BRYON Labs: Laboratory Tests 09/09/20 09/09/20 09/09/20 Range/Units 13:35 13:35 13:35 WBC 2.88 L (4.0-11.0) K/uL RBC 4.73 (4.30-5.90) M/uL Hgb 14.3 (12.0-16.0) g/dL Hct 43.3 (36.0-46.0) % MCV 91.5 (80.0-98.0) fL MCH 30.2 (27.0-32.0) pg MCHC 33.0 (31.0-37.0) g/dL RDW Std Deviation 43.4 (28.0-62.0) fl RDW Coeff of Codey 13 (11.0-15.0) % Plt Count 194 (150-400) K/uL MPV 11.40 (7.40-12.00) fL Neut % (Auto) 50.7 (48.0-80.0) % Lymph % (Auto) 33.7 (16.0-40.0) % [place] % (Auto) 9.7 (0.0-15.0) % Eos % (Auto) 5.6 (0.0-7.0) % Baso % (Auto) 0.3 (0.0-1.5) % Neut # (Auto) 1.5 (1.4-5.7) K/uL Lymph # (Auto) 1.0 (0.6-2.4) K/uL [place] # (Auto) 0.3 (0.0-0.8) K/uL Eos # (Auto) 0.2 (0.0-0.7) K/uL Baso # (Auto) 0.0 (0.0-0.1) K/uL Nucleated RBC % 0.0 /100WBC Nucleated RBCs # 0 K/uL Sodium 139 (136-145) mmol/L Potassium 4.3 (3.5-5.1) mmol/L Chloride 103 (98-107) mmol/L Carbon Dioxide 25.8 (21.0-32.0) mmol/L BUN 15 (7.0-18.0) mg/dL Creatinine 1.1 H (0.6-1.0) mg/dL Est Cr Clr Drug Dosing 80.24 mL/min Estimated GFR (MDRD) > 60.0 ml/min Glucose 82 (74-106) mg/dL Calcium 9.0 (8.5-10.1) mg/dL Total Bilirubin 0.4 (0.2-1.0) mg/dL AST 24 (15-37) IU/L ALT 31 (14-63) IU/L Alkaline Phosphatase 46 (46-116) U/L Total Protein 7.7 (6.4-8.2) g/dL Albumin 4.7 (3.4-5.0) g/dL Globulin 3.0 (2.6-4.0) g/dL Albumin/Globulin Ratio 1.6 (0.9-1.6) HCG, Qual NEGATIVE (NEG) Meds: Medications Generic Name Dose Route Start Last Admin Trade Name Freq PRN Reason Stop Dose Admin Sodium Chloride 10 ml 09/09/20 13:17 09/09/20 13:34 Saline Flush FLUSH 10 ml ASDIRECTED PRN Administration Keep Vein Open Sodium Chloride 2.5 ml 09/09/20 13:17 09/09/20 13:34 Saline Flush FLUSH 2.5 ml ASDIRECTED PRN Administration Keep Vein Open Discontinued Medications Generic Name Dose Route Start Last Admin Trade Name Antoinette PRN Reason Stop Dose Admin Diphenhydramine HCl 50 mg 09/09/20 13:18 09/09/20 13:35 Benadryl IVPUSH 09/09/20 13:19 50 mg ONETIME ONE Administration Sodium Chloride 1,000 mls @ 999 mls/hr 09/09/20 13:18 09/09/20 13:34 Normal Saline IV 09/09/20 14:18 999 mls/hr .Bolus ONE Administration Ketorolac Tromethamine 15 mg 09/09/20 13:18 09/09/20 13:35 Toradol IVPUSH 09/09/20 13:19 15 mg ONETIME ONE Administration Metoclopramide HCl 10 mg 09/09/20 13:18 09/09/20 13:35 Reglan IVPUSH 09/09/20 13:19 10 mg ONETIME ONE Administration Departure - Departure Time of Disposition: 15:31 Disposition: Home, Self-Care 01 Condition: Good Clinical Impression: Migraine - Discharge Information Referrals: PCP,None [Primary Care Provider] - Forms: ED Department Discharge Additional Instructions: [facility] - Neurology Professional [address] [place] [address] [facility] - Internal Medicine [address] [place] [id number] Follow-up with primary care doctor and neurologist by establishing appointments via calling numbers provided above. Return to the ER with any new or worsening symptoms including severe worsening headache, blurry vision, focal neurological deficit, etc. The following information is given to patients seen in the emergency department who are being discharged to home. This information is to outline your options for follow-up care. We provide all patients seen in our emergency department with a follow-up referral. The need for follow-up, as well as the timing and circumstances, are variable depending upon the specifics of your emergency department visit. If you don't have a primary care physician on staff, we will provide you with a referral. We always advise you to contact your personal physician following an emergency department visit to inform them of the circumstance of the visit and for follow-up with them and/or the need for any referrals to a consulting specialist. The emergency department will also refer you to a specialist when appropriate. This referral assures that you have the opportunity for follow-up care with a specialist. All of these measure are taken in an effort to provide you with optimal care, which includes your follow-up. Under all circumstances we always encourage you to contact your private physician who remains a resource for coordinating your care. When calling for follow-up care, please make the office aware that this follow-up is from your recent emergency room visit. If for any reason you are refused follow-up, please contact the [facility] Emergency Department at and asked to speak to the emergency department charge nurse. Sepsis Event Note (ED) - Evaluation Sepsis Screening Result: No Definite Risk - Focused Exam Vital Signs: Vital Signs Temp Pulse Resp BP 09/09/20 12:51 36.3 C 63 19 109/79 - My Orders Last 24 Hours: My Active Orders 09/09/20 13:17 Sodium Chloride 0.9% [Saline Flush] 10 ml FLUSH ASDIRECTED PRN Sodium Chloride 0.9% [Saline Flush] 2.5 ml FLUSH ASDIRECTED PRN Saline Lock Insert [OM.PC] Stat - Assessment/Plan Last 24 Hours: My Active Orders 09/09/20 13:17 Sodium Chloride 0.9% [Saline Flush] 10 ml FLUSH ASDIRECTED PRN Sodium Chloride 0.9% [Saline Flush] 2.5 ml FLUSH ASDIRECTED PRN Saline Lock Insert [OM.PC] Stat
[2020-09-09 14:15] LABS: BLOOD UREA NITROGEN,BUN 15 mg/dL (7.0-18.0); CARBON DIOXIDE,CO2 25.8 mmol/L (21.0-32.0); CHLORIDE,CL 103 mmol/L (98-107); GLUCOSE RANDOM 82 mg/dL (74-106); POTASSIUM,K 4.3 mmol/L (3.5-5.1); SODIUM,NA 139 mmol/L (136-145)
--- NOTE | 2020-09-09 15:25 | CT ---
Indication: Headaches x2 days, chronic headaches Technique: Volumetric multidetector CT images of the head were obtained without the administration of low osmolar intravenous contrast. Comparison: CT head December 10, 2017 Findings: There is no intra-axial or extra-axial fluid collection. There is no mass effect or midline shift. The ventricles and sulci are normal in size and position for age. The brain parenchyma is grossly preserved in attenuation and yao-white differentiation. The orbits and their contents are grossly within normal limits. The bony calvarium is grossly intact. The paranasal sinuses are clear. The mastoid air cells are well aerated. Impression: No acute intracranial abnormality. Please note that all CT scans at this facility use dose modulation, iterative reconstruction, and/or weight-based dosing when appropriate to reduce radiation dose to as low as reasonably achievable. Dictated by Eliu Garrett MD @ Sep 09 2020 3:18PM Signed by Dr. Eliu Garrett @ Sep 09 2020 3:22PM
[2020-09-09 16:09] VITALS: BP 113/41; PULSE 66
== END 2020-09-09 15:58 | disposition home or self-care (01) ==
LOC: MW.ED 11:04
DX: G43.909 Migraine, unspecified, not intractable, without status migrainosus (principal); Z88.0 Allergy status to penicillin
CPT/HCPCS: 36415; 70450; 80053; 84703; 85025; 96374; 96375; 99284; J1200; J1885; J2765; J7030

== ENCOUNTER 2023-11-04 08:11 | Emergency (ER) | payer SELFPAY ==
[2023-11-04] MEDS ORDERED: Acetaminophen/HYDROcodone 325-5 MG Tab PO ONE (08:31)
[2023-11-04] MEDS ORDERED: Acyclovir 200 MG Cap PO ONE (08:31)
[2023-11-04] MEDS ORDERED: Ondansetron 4 MG Tab.DIS PO ONE (08:34)
[2023-11-04 09:32] LABS: CANDIDA DNA PROBE NEGATIVE (NEGATIVE); GARDNERELLA DNA PROBE POSITIVE (NEGATIVE); TRICHOMONAS DNA PROBE NEGATIVE (NEGATIVE)
[2023-11-04] MEDS ORDERED: metroNIDAZOLE 250 MG Tab PO ONE (09:44)
[2023-11-04] MEDS ORDERED: metroNIDAZOLE 250 MG Tab ONE (09:57)
[2023-11-04] MEDS ORDERED: Acyclovir 200 MG Cap ONE (09:57)
[2023-11-04 10:06] LABS: C. TRACHOMATIS BY PCR NOT DETECTED; N. GONORRHOEAE BY PCR NOT DETECTED
[2023-11-04 10:27] VITALS: BP 119/72; PULSE 89
== END 2023-11-04 10:26 | disposition home or self-care (01) ==
LOC: MW.ED 08:11
DX: N76.0 Acute vaginitis (principal); A60.04 Herpesviral vulvovaginitis; Z88.0 Allergy status to penicillin
CPT/HCPCS: 87480; 87491; 87510; 87529; 87591; 87660; 99283; A9270